=== PATIENT | female | born 1980 | race Caucasian/White ===

== ENCOUNTER → 2022-04-08 12:53 | Outpatient (CLI) | payer OTHER, SELFPAY ==
--- NOTE | ~2022-04-08 | XR_ITS ---
XR lumbar spine 2-3V DATE: 04/08/2022 13:22 INDICATION: Back strain TECHNIQUE: AP, lateral, coned lateral lumbosacral views COMPARISON: None FINDINGS: No fracture or dislocation or bone destruction. The lower thoracic and lumbar pedicles are intact. Lumbar no sacral interspaces are well preserved. There is minimal degenerative lipping of the lumbar vertebral bodies. The sacroiliac joints are intact. IMPRESSION: Minimal degenerative change Reviewed, dictated and finalized at location B. IMPRESSION: Minimal degenerative change
== END ==
PROVIDERS: PCP Nurse Practitioner Family; Visit Provider Nurse Practitioner Family
DX: S39.012D Strain of muscle, fascia and tendon of lower back, subsequent encounter (principal)
CPT/HCPCS: 72100

== ENCOUNTER 2024-05-03 10:00 | Outpatient (RCR) | payer OTHER, SELFPAY ==
--- NOTE | 2024-03-29 15:20 | OPREHPOC ---
Outpatient Therapy Plan of Care This is a Multidisciplinary Plan of Care that may contain components documented by all disciplines (PT, OT, and ST.) PT Problem 1 PT Problem #1 Knowledge Deficit PT Goal 1 Goal 1. Patient will perform independent HEP Target Visit 3 PT Problem 2 PT Problem #2 Pain PT Goal 1 Goal 1. No pain with pelvic exam to allow for full medical management, pap smears, etc. Target Visit 6 PT Problem 3 PT Problem #3 Impaired Strength PT Goal 1 Goal 1. Pelvic floor strength to 4/5 to decrease incontinence Target Visit 6 PT Goal 1 Goal 1. Pt will report no more than 1 instance of incontinence per week Target Visit 6
--- NOTE | 2024-03-29 15:21 | PTOPEVAL1 ---
Assessment and note entered by Tasneem Oleary DPT Evaluation Information Assessment Status Evaluation Subjective Information Pt reports urinary incontinence and also notices it with orgasm. Started about 7 years ago and is worsening. Stress incontinence every day, with coughing, sneezing, lifting, etc. Actual amount depends on level of activity and amount varies, can be enough to change clothes and sometimes wears pads. Voids 8-10 times a day, 0 at night. Will avoid fluid if she is being very active. Can hold urge 30 minutes. BM depends on diet, usually daily or every other day. Pain with BM when constipated. No pain with urination. History of pelvic pain and has been diagnosed with endometriosis. Currently has an IUD. The last time she had pelvic pain it was 4/10 highest, 0/10 lowest. Some pain with most recent pelvic exam. Pt has been 3 times and 2 deliveries- 1 vaginal with episiotomy and 1 . Patient goal: decrease incontinence Return to MD not scheduled currently. Reported Pain Level Pain Score 0: Self Report Assessment PT Clinical Summary The patient is presenting to skilled therapy with a chronic history of pelvic pain and urinary incontinence. She presents with decreased pelvic floor strength, increased pelvic floor muscle tone and pain with palpation which are contributing to her daily incontinence and pain. She will highly benefit from therapy to address her impairments in order to safely reduce incontinence and pain and improve function. Plan of Care Interventions Electrical Stimulation,Hot Pack/Cold Pack,Manual Therapy,Neuro Re-education,Patient/Caregiver Education,Therapeutic Activities,Therapeutic Exercise PT Services Indicated Yes Treatment Frequency and 1 time a week for 6 weeks Duration These treatments will address the objective and functional deficits as defined above. The patient will be advanced safely and appropriately in order for the patient to progress towards his/her prior level of function. Additional exercises will be introduced and as well as a comprehensive home exercise program upon discharge, if needed, ?to ensure carryover of functional gains achieved in the clinic. This treatment plan has been reviewed and agreement upon by the patient.
--- NOTE | 2024-05-03 10:37 | OPREHPOC ---
Outpatient Therapy Plan of Care This is a Multidisciplinary Plan of Care that may contain components documented by all disciplines (PT, OT, and ST.) PT Problem 1 PT Problem #1 Knowledge Deficit PT Goal 1 Goal 1. Patient will perform independent HEP Target Visit 3 Progress Met PT Problem 2 PT Problem #2 Pain PT Goal 1 Goal 1. No pain with pelvic exam to allow for full medical management, pap smears, etc. Target Visit 6 Progress Not Met PT Problem 3 PT Problem #3 Impaired Strength PT Goal 1 Goal 1. Pelvic floor strength to 4/5 to decrease incontinence Target Visit 6 Progress Met PT Goal 1 Goal 1. Pt will report no more than 1 instance of incontinence per week Target Visit 6 Progress Partially Met Comment 3 in last week
--- NOTE | 2024-05-03 10:37 | PTOPPROG ---
Assessment and note entered by Tasneem Oleary DPT Evaluation Information Assessment Status Progress Subjective Information Pt reports improvements with therapy and has more control of her bladder with coughing or sneezing. Incontinence 3 days in the last week. Highest pelvic pain in the last week 8/10 in the last week after sexual activity and lowest 0/10. Assessment PT Clinical Summary The patient has made some progress in therapy and reports 3 instances of incontinence in the last week (previously had been daily). She demonstrates improved pelvic floor strength and core strength. She continues to have pelvic pain and pain with palpation of pelvic floor. She will benefit from further therapy to address pain and incontinence in order to return to full function without pain or incontinence. Plan of Care Interventions Electrical Stimulation,Hot Pack/Cold Pack,Manual Therapy,Neuro Re-education,Patient/Caregiver Education,Therapeutic Activities,Therapeutic Exercise PT Services Indicated Yes Treatment Frequency and 1 visit every other week x 3 visits Duration These treatments will address the objective and functional deficits as defined above. The patient will be advanced safely and appropriately in order for the patient to progress towards his/her prior level of function. Additional exercises will be introduced and as well as a comprehensive home exercise program upon discharge, if needed, ?to ensure carryover of functional gains achieved in the clinic. This treatment plan has been reviewed and agreement upon by the patient.
--- NOTE | 2024-05-17 13:19 | PCPTNOTE ---
Patient did not show up to appointment on 05/17/24. Left voicemail for patient to reschedule.
--- NOTE | 2024-06-21 13:00 | PTOPDC ---
Assessment and note entered by Tasneem Oleary, DPT Evaluation Information Assessment Status Discharge - Pt Not Present Subjective Information - Assessment PT Clinical Summary The patient has not attended therapy since 05/03/24. She will be discharged this date and require a new script to resume at a later date. Plan of Care PT Services Indicated No
== END 2024-06-21 13:27 | disposition home or self-care (01) ==
LOC: ANHGOSHPT 10:00
PROVIDERS: PCP Nurse Practitioner Family; Visit Provider Nurse Practitioner
DX: N39.3 Stress incontinence (female) (male) (principal)
CPT/HCPCS: 97110; 97112; 97140; 97161; 97530

== ENCOUNTER 2024-06-22 14:41 | Outpatient (CLI) | payer OTHER, SELFPAY ==
--- NOTE | ~2024-06-22 | MM_ITS ---
EXAMINATION: MM screening bradford BI w iglesia HISTORY: Screening TECHNIQUE: Craniocaudal and mediolateral oblique 3-D tomosynthesis images were obtained and synthetic 2-D images were generated. CAD analysis was submitted and interpreted. COMPARISON: No prior mammogram is available for comparison at this institution. BREAST PARENCHYMAL COMPOSITION: Dense: The breasts are heterogeneously dense, which may obscure small masses FINDINGS: There are obscured masses in the upper outer quadrant of the left breast posteriorly. There are no suspicious masses, calcifications or architectural distortion in the right breast to suggest malignancy. IMPRESSION: 1. Obscured masses upper outer quadrant of the left breast posteriorly 2. Additional mammographic views and possible breast ultrasound are recommended. BI-RADS Category 0: Incomplete: Needs additional imaging evaluation. Reviewed, dictated and finalized at location B. IMPRESSION: 1. Obscured masses upper outer quadrant of the left breast posteriorly 2. Additional mammographic views and possible breast ultrasound are recommended . BI-RADS Category 0: Incomplete: Needs additional imaging evaluation.
== END 2024-06-22 14:42 ==
PROVIDERS: PCP Nurse Practitioner; Visit Provider Nurse Practitioner
DX: Z12.31 Encounter for screening mammogram for malignant neoplasm of breast (principal); N63.21 Unspecified lump in the left breast, upper outer quadrant
CPT/HCPCS: 77063; 77067

== ENCOUNTER 2024-07-23 13:43 | Outpatient (CLI) | payer OTHER, SELFPAY ==
--- NOTE | ~2024-07-23 | XR_ITS ---
EXAM: XR cervical spine 4-5V DATE: 07/23/2024 14:48 HISTORY: no injury acute left arm weakness for 3-4 weeks . COMPARISON: None available. FINDINGS: Craniocervical association and atlantoaxial joint are aligned. No prevertebral soft tissue swelling. Vertebral bodies are aligned. Vertebral body heights are maintained. Mild disc space narro wing, uncovertebral joint hypertrophy, and marginal osteophytosis at C5-C6 through C7-T1. Mild multil evel facet sclerosis. IMPRESSION: Mild lower lumbar degenerative disc disease. Mild multilevel cervical facet arthropathy. Reviewed, dictated and finalized at location K. IMPRESSION: Mild lower lumbar degenerative disc disease. Mild multilevel cervic al facet arthropathy.
--- NOTE | ~2024-07-23 | MR_ITS ---
EXAMINATION: MR brain/brain stem wo/w con DATE: 07/23/2024 14:45 INDICATION: Acute left-sided weakness. Headache. TECHNIQUE: Magnetic resonance imaging (MRI) of the brain and brainstem was performed without and with 15 mL MultiHance intravenous contrast. COMPARISON: None. FINDINGS: There is no intracranial hemorrhage, acute infarction, or abnormal intracranial mass lesion . The ventricles are normal in size. There are mucous retention cysts in the maxillary sinuses. The o rbits are normal. The mastoid air cells are normal. IMPRESSION: 1. Normal brain. Reviewed, dictated and finalized at location A. IMPRESSION: 1. Normal brain.
== END 2024-07-23 13:44 ==
PROVIDERS: PCP Nurse Practitioner; Visit Provider Nurse Practitioner Adult Health
DX: R53.1 Weakness (principal); R51.0 Headache with orthostatic component, not elsewhere classified; Z82.0 Family history of epilepsy and other diseases of the nervous system; M51.36 Other intervertebral disc degeneration, lumbar region
CPT/HCPCS: 70553; 72050

== ENCOUNTER 2024-07-26 07:57 | Outpatient (CLI) | payer OTHER, SELFPAY ==
--- NOTE | ~2024-07-26 | MMUS_ITS ---
EXAMINATION: MM diagnostic bradford LT w iglesia, US breast LT limited HISTORY: Follow-up left breast asymmetries TECHNIQUE: Additional 3-D tomosynthesis images of the left breast were performed and synthetic 2-D im ages were generated. CAD analysis was submitted and interpreted. High resolution Limited left breast ultrasound was performed. COMPARISON: 06/22/2024 BREAST PARENCHYMAL COMPOSITION: Not dense: There are scattered areas of fibroglandular density. FINDINGS: MAMMOGRAPHIC FINDINGS: There are multiple partially obscured nodular asymmetries centered in the upper outer quadrant of the left breast. No suspicious calcifications or architectural distortion. ULTRASOUND: Limited left breast ultrasound: At 1:00, 8 cm from the nipple, there is a complicated 4 mm cyst. At 1 :00, 8 cm from the nipple there is a 8 mm cyst. At 2:00, 8 cm from the nipple there is a small cluste r of cysts measuring up to 8 mm. At 2:00, 7 cm from the nipple there is a 2 mm cyst. At 3:00, 6 cm fr om the nipple there is a complicated 3 mm cyst. At 3:00, 5 cm from the nipple there is a 4 mm cyst. N o suspicious masses to suggest malignancy. IMPRESSION: 1. No evidence for malignancy in the left breast. Benign findings. 2. Routine yearly screening mammogram and regular clinical breast examination are recommended. BI-RADS Category 2: Benign finding(s). Reviewed, dictated and finalized at location B. IMPRESSION: 1. No evidence for malignancy in the left breast. Benign findings. 2. Routine yearly screening mammogram and regular clinical breast examination a re recommended. BI-RADS Category 2: Benign finding(s).
== END 2024-07-26 07:58 ==
PROVIDERS: PCP Obstetrics & Gynecology; Visit Provider Nurse Practitioner
DX: R92.2 Inconclusive mammogram (principal); N63.0 Unspecified lump in unspecified breast
CPT/HCPCS: 76642; 77061; 77065; G0279

== ENCOUNTER 2025-06-23 13:52 | Outpatient (CLI) | payer OTHER, SELFPAY ==
--- NOTE | ~2025-06-23 | MM_ITS ---
EXAMINATION: screening [facility] BI w iglesia INDICATION: Asymptomatic, referred for screening mammogram COMPARISON: 06/22/2024 TECHNIQUE: Digital Breast Tomosynthesis CC, MLO views of Both breasts were obtained with computer-ai ded detection to assist in interpretation of the study. FINDINGS: The breasts are heterogeneously dense, which may obscure small masses. There is an asymmetry seen on the MLO view in the Inferior right breast centered at posterior depth. Elsewhere, there are no mammographic features of malignancy. IMPRESSION: 1. Right breast Asymmetry. 2. No evidence of malignancy in the Left breast. RECOMMENDATION: Right breast Diagnostic mammogram with true lateral, appropriate spot compression views and an ultras ound if needed. BI-RADS Category 0: Incomplete: Needs additional imaging evaluation. Reviewed, dictated and finalized at location B. IMPRESSION: 1. Right breast Asymmetry. 2. No evidence of malignancy in the Left breast. RECOMMENDATION: Right breast Diagnostic mammogram with true lateral, appropriate spot compressi on views and an ultrasound if needed. BI-RADS Category 0: Incomplete: Needs additional imaging evaluation.
--- OUTSIDE RECORDS SUMMARY | 2025-06-23 14:09 | XMS_ITS | Referral Summary ---
Author Organization [facility] Address [address] [place] [address] Care Team Providers Care Descriptive Catalog Librarian Name Role Phone MendelJoyce mcgovern Cece TIE FASTENER Unavailable [phone] Laurel Parks MD Primary Care Provider [phone] Encounters Date Type Department Care Team Description 05/16/2025 Results Follow-Up [facility] Medical [facility] [address] [place] [address] Rosetta Crawford NP XR Chest Pa Lateral 2 Views 05/15/2025 9:53 AM CDT - 05/15/2025 11:59 PM CDT Hospital Encounter [facility] [address] [place] [id number] Subacute cough Discharge Disposition: Discharge to home or self care 05/15/2025 9:00 AM CDT Office Visit [facility] [place] [address] [place] [address] Dalia Magaña NP Subacute cough (Primary Dx); Sore throat 04/29/2025 10:30 AM CDT Office Visit [facility] [place] [address] [place] [address] Dalia Magaña NP Lower respiratory infection (Primary Dx); Sore throat 04/04/2025 Telephone [facility] [address] [address] Nimco Ramos NP Prior Auth (ZEPBOUND) from Last 3 Months Allergies Active Allergy Reactions Criticality Noted Date Comments Latex Itching,Rash Medium 09/29/2019 Naproxen Hives,Other (See comments),Shortness of breath,Unknown High 04/14/2024 Reaction: Anaphylaxis, , Reaction: hives, difficulty breathing, Nsaids (Non-Steroidal Anti-Inflammatory Drug) Anaphylaxis,Hives,Itc corbin,Unknown,Swelling High 09/29/2019 Medications levonorgestreL (Mirena) IUD Take 1 device by intrauterine route. 6 Active sertraline 200 mg capsuleIndicati ons:Generalized anxiety disorder,MDD (major depressive disorder), recurrent episode, moderate (HCC) Take 1 capsule by mouth daily 90 capsule 1 4 08/23/20 25 Active Additional Information Patient taking differently: No details specified, Reason: pt states 100 mg, Reported on 05/15/2025 buPROPion XL (WELLBUTRIN XL) 150 mg 24 hr tabletIndicatio ns:Generalized anxiety disorder,MDD (major depressive disorder), recurrent episode, moderate (HCC) Take 1 tablet (150 mg total) by mouth every morning 90 tablet 3 4 08/23/20 25 Active azithromycin (ZITHROMAX) 250 mg tabletIndicatio ns:Lower respiratory infection Take two tabs first day, then one tab daily x 4 days 6 tablet 5 Active Additional Information Patient not taking.Reported on 05/15/2025 albuterol HFA (PROVENTIL HFA,VENTOLIN HFA,PROAIR HFA) 90 mcg/actuation inhalerIndicati ons:Lower respiratory infection Inhale 2 puffs every 4 (four) hours as needed for wheezing 1 each 5 Active fluticasone propionate (FLONASE) 50 mcg/actuation nasal sprayIndication s:Lower respiratory infection Administer 2 sprays into each nostril daily 1 each 5 Active Zepbound 15 mg/0.5 mL pen injector ADMINISTER 15 MG UNDER THE SKIN EVERY 7 DAYS 5 Active benzonatate (TESSALON) 200 mg capsuleIndicati ons:Subacute cough Take 1 capsule (200 mg total) by mouth 3 (three) times a day as needed for cough 42 capsule 5 Active Active Problems Problem Noted Date Diagnosed Date Familial migraine 08/23/2024 Assessment & Plan (08/23/2024 12:28 PM CDT): Referral to genetics Daughter's neurologist wants genetic testing 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 Alejandra New referral placed Numbness and tingling in left arm 08/23/2024 Assessment & Plan (08/23/2024 12:30 PM CDT): Had stroke workup-negative Unsure if related to anxiety EMG ordered MDD (major depressive disord er), recurrent episode, moderate 04/12/2024 Assessment & Plan (08/23/2024 12:29 PM CDT): Chronic, stable Split from ex 08/2023, in 01/2024 Still struggling Continue Sertraline 200 mg daily and Wellbutrin 150 mg daily Generalized anxiety disorder 04/12/2024 Assessment & Plan (08/23/2024 12:29 PM CDT): Chronic, stable Split from ex 08/2023, in 01/2024 Still struggling Continue Sertraline 200 mg daily and Wellbutrin 150 mg daily Dyslipidemia 06/09/2015 Tobacco dependence syndrome 04/16/2014 Resolved Problems Problem Noted Date Diagnosed Date Resolved Date Rectal pain 04/14/2024 08/23/2024 Grief 04/12/2024 08/23/2024 Adjustment disorder 04/12/2024 08/23/20 24 Immunizations Immunization Administration Dates Next Due DTP 07/02/1985, 5,09/20/1981,1980,02/20/1981 Influenza, Unspecified 08/23/2024(Deferr ed: Patient Refused),08/31/2023(Deferred: Patient Refused) MMR 07/21/1991,04/11/1982 OPV 07/02/1985, 5,09/20/1981,1980,02/20/1981 Pfizer SARS-CoV-2 Monovalent Vaccination (12+ Yrs) PURPLE 03/05/2021,02/11/2021 Td, adsorbed 01/23/1995 Tdap 10/16/2009 Social History Tobacco Use Types Packs/Day Years Used Date Smoking Tobacco: Former Cigarettes 2 018 - 1995 Vaping Started: 2018 Passive Smoke Exposure: Current Smokeless Tobacco: Never Tobacco Cessation:Counseling Given: Not Answered Comments:Smoking History Packs/day: 1 Packs Alcohol Use Standard Drinks/Week Comments Yes 0 (1 standard drink = 0.6 oz pur e alcohol) AUDIT-C Answer Date Recorded Q1: How often do you have a drink containing alc ohol? 2-4 times a month 08/23/2024 Q2: How many drinks containi ng alcohol do you have on a typical day when you are drinking? 1 or 2 08/23/2024 Q3: How often do you have si x or more drinks on one occasion? Never 08/23/2024 PHQ-2 Answer Date Recorded PHQ-2 Total Score (If total score is 3 or more points, staff should administer the PHQ-9) 2 08/23/2024 Personal Safety Answer Date Recorded Have you ever been in or are you currently in a harmful physical or emotional relationship or is someone making you feel afraid or unsafe? Denies 07/06/2024 Comments No Sex and Gender Information Value Date Recorded Sex Assigned at Not on file Legal Sex Female 2:54 PM INPATIENT CODER Gender Identity Female 05/03/2024 9:12 AM CDT Sexual Orientation Not on file Last Filed Vital Signs Vital Sign Reading Time Taken Comments Blood Pressure 134/74 05/15/2025 8:57 AM CDT Pulse 111 05/15/2025 8:57 AM CDT Temperature 36.6 C (97.8 F) 05/15/2025 8:57 AM CDT Respiratory Rate 16 05/15/2025 8:57 AM CDT Oxygen Saturation 98% 05/15/2025 8:57 AM CDT Inhaled Oxygen Concentration - - Weight 72.6 kg (160 lb) 05/15/2025 8:57 AM CDT Height 162.6 cm (5' 4) 05/15/2025 8:57 AM CDT Body Mass Index 27.46 05/15/2025 8:57 AM CDT Plan of Treatment Not on file Procedures Procedure Name Priority Date/Time Associated Diagnosis Comments XR CHEST PA LATERAL 2 VIEWS Schedule BILL, Read BILL (Appt Today, Awaiting Results) 05/15/2025 10:01 AM CDT Subacute cough POCT RAPID STREP Routine 05/15/2025 9:12 AM CDT Sore throat POCT INFLUENZA A/B Routine 04/29/2025 10:31 AM CDT Sore throat COVID-19 POC Routine 04/29/2025 10:31 AM CDT Sore throat POCT RAPID STREP Routine 04/29/2025 10:3 1 AM CDT Sore throat from Last 3 Months Results * XR Chest Pa Lateral 2 Views (05/15/2025 10:01 AM CDT) Anatomical Region Laterality Modality Body, Chest N/A Computed Radiogr aphy 05/15/2025 11:3 4 PM CDT Narrative 05/15/2025 11:44 PM CDT EXAM DESCRIPTION: XR CHEST PA LATERAL 2 VIEWS REASON FOR STUDY: cough x3 weeks, worsening. Vapes. Concern for pneumonia. Current vape user with cough for three weeks. No fever. TECHNIQUE: 2 radiographic view(s) of the chest. COMPARISON: None FINDINGS: LUNGS: No focal opacity, pleural effusion, or pneumothorax. HEART/MEDIASTINUM: Cardiac silhouette normal in size. Mediastinal and hilar contours appear normal. LINES/TUBES: None. BONES: No acute osseous abnormality. IMPRESSION: No acute cardiopulmonary abnormality. THIS IS AN ELECTRONICALLY VERIFIED FINAL REPORT 05/15/2025 11:44 PM - Electronically signed by Edilberto Hein M.D. KT: DANIELLE Report ID: [id number] Reading Location: [id number] Procedure Note Edilberto Hein MD - 05/15/2025 EXAM DESCRIPTION: XR CHEST PA LATERAL 2 VIEWS REASON FOR STUDY: cough x3 weeks, worsening. Vapes. Concern forpneumonia. Current vape user with cough for three weeks. No fever. TECHNIQUE: 2 radiographic view(s) of the chest. COMPARISON: None FINDINGS: LUNGS: No focal opacity, pleural effusion, or pneumothorax. HEART/MEDIASTINUM: Cardiac silhouette normal in size. Mediastinal andhilar contours appear normal. LINES/TUBES: None. BONES: No acute osseous abnormality. IMPRESSION: No acute cardiopulmonary abnormality. THIS IS AN ELECTRONICALLY VERIFIED FINAL REPORT 05/15/2025 11:44 PM - Electronically signed by Edilberto Hein M.D. KT: DANIELLE Report ID: [id number] Reading Location: [place] [address] Dalia Magaña TIE FASTENER IMG XR PROCEDURES Final Result * POCT rapid strep A (05/15/2025 9:12 AM CDT) [facility] Rapid Strep A, POC Negative Negative Swab 05/15/2025 9:12 AM CDT Dalia Magaña POINT OF CARE TEST ORDERABLES Fi nal Result * COVID-19 POC (04/29/2025 10:31 AM CDT) [facility] COVID-19 Ag POC (BD Veritor) Presumptive Negative Presumptive Negative, Invalid [facility] Nasal 04/29/2025 10:3 1 AM CDT Dalia Magaña TIE FASTENER POINT OF CARE TEST ORDERABLES Fi nal Result [facility] [address] [place] [address], [facility] * POCT influenza A/B (04/29/2025 10:31 AM CDT) Rapid Influenza A Ag Negative Negative, Invalid Rapid Influenza B Ag Negative Negative, Invalid Nasal 04/29/2025 10:3 1 AM CDT Dalia Magaña TIE FASTENER POINT OF CARE TEST ORDERABLES Fi nal Result * POCT rapid strep A (04/29/2025 10:31 AM CDT) Rapid Strep A, POC Negative Negative Swab 04/29/2025 10:3 1 AM CDT Dalia Magaña TIE FASTENER POINT OF CARE TEST ORDERABLES Fi nal Result from Last 3 Months Insurance [employer] Care Teams Descriptive Catalog Librarian Relationship Specialty Start Date End Date Laurel Parks MD [address] [place] [phone] PCP - General Internal Medicine 05/15/25 Joyce Avilez NP [address] [place] [address] Nurse Practitioner Obstetrics and Gynecology 03/17/24
--- OUTSIDE RECORDS SUMMARY | 2025-06-23 14:09 | XMS_ITS | Clinical Summary ---
Author Organization [facility] [employer] Address [address] [place] [address] Care Team Providers Care Dancing Master Name Role Phone Laurel Parks MD Primary Care Provider [phone] Allergies Active Allergy Reactions Criticality Noted Date Comments Latex Itching,Rash Low 09/29/2019 Naproxen Hives,Other (See Comments),Shortness of Breath/Wheezing High 04/14/2024 Reaction: Anaphylaxis, , Reaction: hives, difficulty breathing, Nsaids (Non-Steroidal Anti-Inflammatory Drug) Anaphylaxis,Hives,Itc corbin,Swelling High 09/29/2019 Medications levonorgestreL (MIRENA) 20 mcg/24 hours (7 yrs) 52 mg IUD 07/01/20 16 Active albuterol sulfate HFA 90 mcg/actuation aerosol inhalerIndicati ons:Cough, unspecified type Take 2 Puffs by inhalation every 6 hours as needed for Shortness of Breath or Wheezing. 8.5 Gram 06/15/20 24 Active multivitamin/ir on/folic acid (CENTRUM WOMEN ORAL) Take by mouth. Activ e L.acid/L.casei/ B.bif/B.dennys/FOS (PROBIOTIC BLEND ORAL) Take by mouth. Act nancy sertraline (ZOLOFT) 100 mg tabletIndicatio ns:Mixed anxiety and depressive disorder Take 1 Tablet (100 mg) by mouth daily. 90 Tablet 05/10/20 25 Active buPROPion HCL (Wellbutrin XL) 300 mg Extended Release 24 hour tabletIndicatio ns:Mixed anxiety and depressive disorder Take 1 Tablet (300 mg) by mouth daily in the morning. 90 Tablet 06/02/20 25 Active tirzepatide, weight loss, (Zepbound) 15 mg/0.5 mL Pen InjectorIndicat ions:Obesity (BMI 30.0-34.9) Inject 0.5 mL (15 mg) by subcutaneous injection every 7 days. 6 mL 06/02/20 25 Active tirzepatide, weight loss, (Zepbound) 15 mg/0.5 mL Pen InjectorIndicat ions:Obesity (BMI 30.0-34.9) Inject 0.5 mL (15 mg) by subcutaneous injection every 7 days. 2 mL 05/10/20 25 025 Discontin ued(Reord er) buPROPion HCL (Wellbutrin XL) 300 mg Extended Release 24 hour tabletIndicatio ns:Mixed anxiety and depressive disorder Take 1 Tablet (300 mg) by mouth daily in the morning. 30 Tablet 05/10/20 25 025 Discontin ued(Reord er) Active Problems Problem Noted Date Diagnosed Date Obesity (BMI 30.0-34.9) 11/16/2024 Cervical spine arthritis 09/21/2024 MDD (major depressive disord er), recurrent episode, moderate 04/12/2024 Adjustment disorder 04/12/2024 Generalized anxiety disorder 04/12/2024 Grief 04/12/2024 Tobacco use 09/29/2019 Encounters Date Type Department Care Team Description 06/15/2025 External Device Data STL ABSTRACTION Provider, Abstract 06/15/2025 External Device Data STL ABSTRACTION Provider, Abstract 06/08/2025 Chart Note [facility] at [facility] [employer] [place] [address] [place] [phone] Benton Anthony 06/07/2025 2:30 PM CDT Video Visit [facility] at [facility] [address] [place] [phone] Benton Anthony Generalized anxiety disorder (Primary Dx); Major depressive disorder, recurrent, moderate (CMS/HCC) 06/02/2025 2:00 PM CDT Office Visit [facility] at [place] [address] [place] [address] Laurel Parks MD Obesity (BMI 30.0-34.9) (Primary Dx); Mixed anxiety and depressive disorder 05/18/2025 External Device Data STL ABSTRACTION Provider, Abstract 05/12/2025 Telephone [facility] at [address] [place] [address] Benton Anthony CoCHortencia Initial Contact (2nd contact. Scheduled initial assessment for 06/07/25 @ 2:30 PM by video.) 05/11/2025 Telephone [facility] at [address] [facility] [place] [address] Benton Anthony CoCHortencia Initial Contact (1st contact to schedule initial assessment. Left message.) 05/10/2025 2:30 PM CDT Office Visit [facility] at [place] [address] [place] [address] Laurel Parks MD Obesity (BMI 30.0-34.9) (Primary Dx); Mixed anxiety and depressive disorder 05/03/2025 External Device Data STL ABSTRACTION Provider, Abstract 04/26/2025 External Device Data STL ABSTRACTION Provider, Abstract 04/21/2025 External Device Data STL ABSTRACTION Provider, Abstract 04/20/2025 External Device Data STL ABSTRACTION Provider, Abstract 04/14/2025 2:30 PM CDT Office Visit [facility] at [address] [place] [address] Laurel Parks MD Obesity (BMI 30.0-34.9) (Primary Dx); Mixed anxiety and depressive disorder; Need for pwhlprlwyj-uahcsuo-sh rtussis (Tdap) vaccine 04/14/2025 Results Follow-Up [facility] at [facility] [address] [place] [address] Mari Benedict, ESTELA TSH, LIPID PANEL, COMPREHENSIVE METABOLIC PANEL, CBC WITH DIFFERENTIAL 04/11/2025 8:20 AM CDT Office Visit [facility] at [facility] [employer] [address] [place] [address] Screening for condition (Primary Dx) from Last 3 Months Immunizations Immunization Administration Dates Next Due (ADACEL/BOOSTRIX)(10 YR UP) TDAP VACCINE, 0.5ML, IM 04/14/2025,10/16/2009 (M-M-R II/PRIORIX)(12 MO UP) MEASLES, MUMPS AND RUBELLA VIRUS VACCINE, 0.5 ML IM/SUBCUT 07/21/1991,04/11/1982 Diptheria, Tetanus Toxoids, And Whole Cell Pertussis Vaccine (DTP), for intramuscular use 07/02/1985,01/12/1985,09/20/1981,04/06,02/20/1981 Poliovirus Vaccine Live Oral 07/02/1985, 01/12/1985,09/20/1981,04/06,02/20/1981 Td Adsorbed Vaccine PF IM 01/23/1995 Family History Medical History Relation Name Comments No Known Problems Brother 1 Depression Brother 2 Armando Ulcerative Colitis Daughter 1 Other Daughter 2 chronic constip ation Anemia Daughter 3 George Multiple Sclerosis Daughter 3 George Other Daughter 3 George Ulcerative Coli tis Hypertension Father Michael Heart Disease Maternal Grandfather Bill Unknown Maternal Grandmother Heart Disease Mother Martita Hypertension Mother Martita Stroke Mother Martita Unknown Paternal Grandfather Unknown Paternal Grandmother Relation Name Status Comments Brother 1 Brother 2 Armando Daughter 1 Alive Daughter 2 Alive Daughter 3 George Alive Father Michael Alive Maternal Grandfather Bill Maternal Grandmother Mother Martita Paternal Grandfather Paternal Grandmother Social History Tobacco Use Types Packs/Day Years Used Date Smoking Tobacco: Former Cigarettes 1 20 1 - 09/24/2020 Smokeless Tobacco: Never Tobacco Cessation:Counseling Given: Not Answered Alcohol Use Standard Drinks/Week Comments Yes 0 (1 standard drink = 0.6 oz pur e alcohol) Drink occassionally Comments No Sex and Gender Information Value Date Recorded Sex Assigned at Female 03/17/2024 8:41 AM CDT Legal Sex Female 8:47 PM CDT Gender Identity Female 03/17/2024 8:41 AM CDT Sexual Orientation Choose not to disclose 2023 8:41 AM CDT Last Filed Vital Signs Vital Sign Reading Time Taken Comments Blood Pressure 112/80 06/02/2025 1:57 PM CDT Pulse 92 06/02/2025 1:57 PM CDT Temperature 36.7 C (98.1 F) 06/02/2025 1:57 PM CDT Respiratory Rate 18 06/02/2025 1:57 PM CDT Oxygen Saturation 98% 06/02/2025 1:57 PM CDT Inhaled Oxygen Concentration - - Weight 73.5 kg (162 lb) 06/02/2025 1:57 PM CDT Height 162.6 cm (5' 4) 06/02/2025 1:57 PM CDT Body Mass Index 27.81 06/02/2025 1:57 PM CDT Plan of Treatment Upcoming Encounters Date Type Department Care Team (Late st Contact Info) Description 06/24/2025 9:00 AM CDT Video Visit [facility] at [facility] [employer] [facility] [address] [place] [phone] Benton Anthony [address] [place] [phone] 09/07/2025 2:30 PM CDT Office Visit [facility] at [facility] [employer] [facility] [address] [place] [phone] aLurel Parks MD [address] [place] [place] [address] Health Maintenance Due Date Last Done Comments Pre-Diabetes and Diabetes Screening 1980 HPV VACCINES (1 - 3-dose series) 1995 HEPATITIS B VACCINES (1 of 3 - 19+ 3-dose series) 1999 HPV/Cotest (21-29) 2001 HPV/Cotest (30-65) 2010 COVID-19 Vaccine (3 - 2023-2 5 season) 2024 03/05/2021, 02/11/2021 INFLUENZA VACCINE (#1) 2025 10/19/2024, 2018 BREAST CANCER SCREENING 07/26/2025 07/26/2024 CERVICAL CANCER SCREENING 11/29/2027 PAP SMEAR 11/29/2027 11/29/2024, 11/01, 11/19/2022, Additional history exists DTAP/TDAP/TD VACCINES (7 - T d or Tdap) 04/14/2035 04/14/2025, 10/16/2009, 01/23/1995, Additional history exists Procedures Procedure Name Priority Date/Time Associated Diagnosis Comments CBC WITH DIFFERENTIAL Routine 04/11/2025 8:08 AM CDT Screening for condition COMPREHENSIVE METABOLIC PANEL Routine 04/11/2025 8:08 AM CDT Screening for condition LIPID PANEL Routine 04/11/2025 8:08 AM CDT Screening for condition TSH Routine 04/11/2025 8:08 AM CDT Screening for condition MAMMO 3D AMINTA SCREEN BILAT W OR WO CAD Routine 07/26/2024 11:50 AM CDT from Last 3 Months or Most Recently Relevant to Health Maintenance Results * CBC WITH DIFFERENTIAL (04/11/2025 8:08 AM CDT) WBC 5.8 3.8 - 10.8 Thousand/u L [facility] RBC 4.38 3.80 - 5.10 Million/uL [facility] HEMOGLOBIN 14.0 11.7 - 15.5 g/dL [facility] HEMATOCRIT 41.8 35.0 - 45.0 % [facility] MCV 95.4 80.0 - 100.0 fL [facility] MCH 32.0 27.0 - 33.0 pg [facility] MCHC 33.5 32.0 - 36.0 g/dL [facility] Comment: For adults, a slight decrease in the calculated MCHC value (in the range of 30 to 32 g/dL) is most likely not clinically significant; however, it should be interpreted with caution in correlation with other red cell parameters and the patient's clinical condition. RDW 12.3 11.0 - 15.0 % [facility] PLATELETS 300 140 - 400 Thousand/u L [facility] MPV 9.4 7.5 - 12.5 fL [facility] NEUTROPHIL ABSOLUTE 3,660 1,500 - 7,800 cells/uL [facility] LYMPHOCYTE ABSOLUTE 1,572 850 - 3,900 cells/uL [facility] MONOCYTE ABSOLUTE 447 200 - 950 cells/uL [facility] EOSINOPHIL ABSOLUTE 93 15 - 500 cells/uL [facility] BASOPHILS ABSOLUTE 29 0 - 200 cells/uL [facility] NEUTROPHIL 63.1 % [facility] LYMPHOCYTES 27.1 % [facility] MONOCYTE 7.7 % [facility] EOSINOPHILS 1.6 % [facility] BASOPHILS 0.5 % [facility] Comment: Test Performed at: [facility] [place] [address] [place] [address] [facility] Blood 04/11/2025 8:08 AM CDT 04/12/2025 3:50 AM CDT Mari Benedict NP HEMATOLOGY ORDERABLES Fin al Result [facility] [phone] [facility] [address] [address] [place] [phone] * TSH (04/11/2025 8:08 AM CDT) TSH 1.21 mIU/L [facility] Comment: Reference Range > or = 20 Years 0.40-4.50 Ranges First trimester 0.26-2.66 Second trimester 0.55-2.73 Third trimester 0.43-2.91 Test Performed at: [place] [address] [place] [address] [facility] Blood 04/11/2025 8:08 AM CDT 04/12/2025 3:50 AM CDT Mari Clark Jak ANIMAL ANATOMIST CHEMISTRY ORDERABLES Quiana l Result [facility] [phone] [place] [address] [place] [address] * LIPID PANEL (04/11/2025 8:08 AM CDT) CHOLESTEROL 151 <200 mg/dL [facility] [employer] [facility] [place] HDL 55 > OR = 50 mg/dL [facility] TRIGLYCERIDE 79 <150 mg/dL [facility] LDL CALCULATED 80 mg/dL (calc) [facility] [place] Comment: Reference range: <100 Desirable range <100 mg/dL for primary prevention; <70 mg/dL for patients with CHD or diabetic patients with > or = 2 CHD risk factors. LDL-C is now calculated using the Rebeca calculation, which is a validated novel method providing better accuracy than the Friedewald equation in the estimation of LDL-C. Dewey CHERY et al. JYOTSNA. 2013;310(19): 5816-7114 (http://education.LoginRadius/faq/SYZ614) CHOL/HDL RATIO 2.7 <5.0 (calc) [facility] NON-HDL CHOLESTEROL 96 <130 mg/dL (calc) [facility] Comment: For patients with diabetes plus 1 major ASCVD risk factor, treating to a non-HDL-C goal of <100 mg/dL (LDL-C of <70 mg/dL) is considered a therapeutic option. Test Performed at: [place] [address] [address] [phone] [facility] Blood 04/11/2025 8:08 AM CDT 04/12/2025 3:50 AM CDT Mari Clark Jak ANIMAL ANATOMIST CHEMISTRY ORDERABLES Quiana l Result [facility] [phone] [place] [address] [address] [place] [phone] * COMPREHENSIVE METABOLIC PANEL (04/11/2025 8:08 AM CDT) GLUCOSE 84 65 - 99 mg/dL [facility] Comment: Fasting reference interval BUN 11 7 - 25 mg/dL [facility] CREATININE 0.65 0.50 - 0.99 mg/dL [facility] GFR 111 > OR = 60 mL/min/1. 73m2 [facility] BUN/CREAT RATIO SEE NOTE: 6 - 22 (calc) [facility] Comment: Not Reported: BUN and Creatinine are within reference range. SODIUM 137 135 - 146 mmol/L [facility] Ronak katiana [place] POTASSIUM 4.2 3.5 - 5.3 mmol/L [facility] [place] CHLORIDE 102 98 - 110 mmol/L [facility] [place] CO2 25 20 - 32 mmol/L [facility] [place] CALCIUM 9.0 8.6 - 10.2 mg/dL [facility] TOTAL PROTEIN 6.3 6.1 - 8.1 g/dL [facility] ALBUMIN 4.4 3.6 - 5.1 g/dL [facility] GLOBULIN 1.9 1.9 - 3.7 g/dL (calc) Juan [employer] [employer] [facility] [place] ALBUMIN/GLOBULIN RATIO 2.3 1.0 - 2.5 (calc) [facility] [place] BILIRUBIN TOTAL 0.8 0.2 - 1.2 mg/dL [facility] [employer] [facility] ALKALINE PHOSPHATASE 38 31 - 125 U/L [facility] AST 13 10 - 30 U/L [facility] ALT 11 6 - 29 U/L [facility] kat[facility] Comment: Test Performed at: [facility] [place] [address] [address] [phone] Raul Cardoza Vo Blood 04/11/2025 8:08 AM CDT 04/12/2025 3:50 AM CDT us Mari Benedict ANIMAL ANATOMIST CHEMISTRY ORDERABLES Quiana moreno Result [facility] [phone] [facility] [place] [address] [address] [phone] * MAMMO 3D AMINTA SCREEN BILAT W OR WO CAD (07/26/2024 11:50 AM CDT) Anatomical Region Laterality Modality Breast Bilateral Mammography Joyce Avilez ANIMAL ANATOMIST MAMMO ORDERABLES Final Result from Last 3 Months or Most Recently Relevant to Health Maintenance Insurance * Guarantor: [employer] D (C) Account Type Relation to Patient Date of Phone Billing Address Corporate Employer ATTN: [employer] [address] [place] [phone] [place] * Guarantor: [employer] Account Type Relation to Patient Date of Phone Billing Address Corporate Employer ATTN: [employer] [address] [address] Care Teams Dancing Master Relationship Specialty Start Date End Date Laurel Parks MD [address] [place] [address] [employer] [place] [address] PCP - General Internal Medicine 09/21/24"
--- OUTSIDE RECORDS SUMMARY | 2025-06-23 14:09 | XMS_ITS | Clinical Summary ---
Author Organization [facility] Address [address] [place] [address] Care Team Providers Care Pelletising Extruder Operator Name Role Phone Joyce Avilez REGISTERED PUBLIC SURVEYOR Unavailable [phone] Laurel Parks MD Primary Care Provider [phone] Allergies Active Allergy Reactions Criticality Noted Date [...] 04/12/2024 08/23/2024 Adjustment disorder 04/12/2024 08/23/20 24 Encounters Date Type Department Care Team Description 05/16/2025 Results Follow-Up [facility] at [address] [place] [address] Rosetta Crawford NP XR Chest Pa Lateral 2 Views 05/15/2025 9:53 AM CDT - 05/15/2025 11:59 PM CDT Hospital Encounter [facility] [address] [place] [address] Subacute cough Discharge Disposition: Discharge to home or self care 05/15/2025 9:00 AM CDT Office Visit [facility] at [address] [place] [address] Dalia Magaña NP Subacute cough (Primary Dx); Sore throat 04/29/2025 10:30 AM CDT Office Visit [facility] [address] [place] [address] Dalia Magaña NP Lower respiratory infection (Primary Dx); Sore throat 04/04/2025 Telephone [facility] [address] [address] Nimco Ramos NP Prior Auth (ZEPBOUND) from Last 3 Months Immunizations Immunization Administration Dates Next Due DTP 07/02/1985, 5,09/20/1981,1980,02/20/1981 Influenza, Unspecified 08/23/2024(Deferr ed: Patient Refused),08/31/2023(Deferred: Patient Refused) MMR 07/21/1991,04/11/1982 OPV 07/02/1985, 5,09/20/1981,1980,02/20/1981 Pfizer SARS-CoV-2 Monovalent Vaccination (12+ Yrs) PURPLE 03/05/2021,02/11/2021 Td, adsorbed 01/23/1995 Tdap 10/16/2009 Surgical History Surgery Date Site/Laterality Comments OTHER SURGICAL HISTORY endometriosis: laparoscopic surgery OTHER SURGICAL HISTORY 2005 Rotator cuff repair: rt shoulder surgery TONSILLECTOMY 1994 Tonsillectomy SECTION 2002 section OTHER SURGICAL HISTORY 1998 cryo/freezing uterus OTHER SURGICAL HISTORY Mitral Valve prolapse: Patient states never had echo OTHER SURGICAL HISTORY 03-derm: Dr Alejandra Medical History Medical History Date Comments 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 Hx Other Medical 2 tubes from ki dney to bladder Endometritis 2005 endometriosis Hx Other Medical Rotator cuff re pair Hx Other Medical Mitral Valve pr olapse Hx Other Medical Menstrual Heada ches Hx Other Medical A0 (1 csect ion) Hx Other Medical 03-derm Hx Other Medical Subacute cutane ous lupus Hx Other Medical Mirena IUD plac ed 07/2016, Dr Arteaga Family History Medical History Relation Name Comments Depression Brother Depression; Hypertension Father Hypertension; Heart attack Maternal Grandfather Myocard ial infarction; Heart attack Maternal Grandmother Myocard ial infarction; Breast cancer Mother Cancer -breast ; Depression Mother Depression; Heart disease Mother Heart disease; Hypertension Mother Hypertension; Stroke Mother Stroke; Other Other 2 hole in heart ; Relation Name Status Comments Brother Father Maternal Grandfather Maternal Grandmother Mother Other 1 Alive Other 2 Social History Tobacco Use Types Packs/Day Years Used Date Smoking Tobacco: Former Cigarettes 2 - 1995 Vaping Started: 2017 Passive Smoke Exposure: Current Smokeless Tobacco: Never [...] on file 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 Gender Identity Female 05/03/2024 9:12 AM CDT Sexual Orientation Not on file Obstetrics History Last Filed Vital Signs Vital Sign Reading [...] 05/15/2025 8:57 AM CDT Plan of Treatment Health Maintenance Due Date Last Done Comments Regular Well Visit/Exam 18-64 1998 HPV Vaccines (1 - 3-dose SCDM series) 2007 Cervical Cancer Screening 11/25/2024 11/25/2023 Breast Cancer Screening-Mammogram 07/26/2025 07/26/2024 Influenza Vaccine (#1) 2025 Depression Screening 08/23/2025 08/23/2024 DTaP/Tdap/Td Vaccine (7 - Td or Tdap) 04/14/2035 04/14/2025, 10/16/2009, 01/23/1995, Additional history exists Covid-19 Vaccine Discontinued 03/05/2021, 02/11/2021 Hepatitis B Screening Completed 11/25/2023 Hepatitis C Screening Completed 11/25/2023 Pneumococcal vaccine <65 Aged Out No longer eligible based on patient's age to complete this topic Varicella Vaccines Discontinued Procedures Procedure Name Priority Date/Time Associated Diagnosis [...] Edilberto Hein M.D. KT: DANIELLE Report ID: [id number] Reading Location: [id number] Procedure Note Edilberto Hein MD - 05/15/2025 [...] Edilberto Hein M.D. KT: DANIELLE Report ID: [id number] Reading Location: [place] [address] Dalia Magaña REGISTERED PUBLIC SURVEYOR IMG XR PROCEDURES Final Result * POCT rapid strep A (05/15/2025 9:12 AM CDT) [facility] Rapid Strep A, POC Negative Negative Swab 05/15/2025 9:12 AM CDT Dalia Magaña REGISTERED PUBLIC SURVEYOR POINT OF CARE TEST ORDERABLES Fi nal Result * COVID-19 POC (04/29/2025 10:31 AM CDT) [facility] COVID-19 Ag POC (BD Veritor) Presumptive Negative Presumptive Negative, Invalid [facility] Nasal 04/29/2025 10:3 1 AM CDT Dalia Magaña REGISTERED PUBLIC SURVEYOR POINT OF CARE TEST ORDERABLES Fi nal Result [facility] [address] [place] [address], [facility] * POCT influenza A/B (04/29/2025 10:31 AM CDT) [facility] Rapid Influenza A Ag Negative Negative, Invalid Rapid Influenza B Ag Negative Negative, Invalid Nasal 04/29/2025 10:3 1 AM CDT Dalia Magaña REGISTERED PUBLIC SURVEYOR POINT OF CARE TEST ORDERABLES Fi nal Result * POCT rapid strep A (04/29/2025 10:31 AM CDT) Rapid Strep A, POC Negative Negative Swab 04/29/2025 10:3 1 AM CDT Dalia Magaña REGISTERED PUBLIC SURVEYOR POINT OF CARE TEST ORDERABLES Fi nal Result from Last 3 Months Insurance [employer] Care Teams Pelletising Extruder Operator Relationship Specialty Start Date End Date Laurel Parks MD [address] [place] [phone] PCP - General Internal Medicine 05/15/25 Joyce Avilez NP [address] [place] [address] Nurse Practitioner Obstetrics and Gynecology 03/17/24
--- OUTSIDE RECORDS SUMMARY | 2025-06-23 14:09 | XMS_ITS | Data Portability ---
Author Organization [facility] Address [address] [place] [address] Care Team Providers Care Lens Blocker Name Role Phone YARELY NGUYEN Primary Care Provider Assessment Encounter Date Assessment Date Assessment LastModified by Organization Details LastModified Time 11/19/2022 11/19/2022 Annual gynecological exam performed. Patient will come back in a year unless there are new symptoms. [email or web address] Not available 11/19/2022 12:08:47 11/25/2023 11/25/2023 Annual gynecological exam performed. Patient will come back in a year unless there are new symptoms. [email or web address] Not available 11/25/2023 10:53:35 11/29/2024 11/29/2024 Annual gynecological exam performed. Patient will come back in a year unless there are new symptoms. [email or web address] Not available 11/29/2024 09:54:59 Plan of Treatment Reminders Order Date Submit Date Provider Last Modified By Organization Details Last Modified Time Details Appointments None recorded . Lab hbcab (hepatit is B core Ab) igm, serum 2023 024 [facility] (Lab), [address] [place], [address], 4 12:05:01 HBsAg (hepatit is B surface Ag), serum 2023 024 [facility] (Lab), [address] [place], [address], 4 12:05:01 hepatiti s C virus Ab, serum 2023 024 [facility] (Lab), [address], [place], [address], 4 12:05:00 HIV 1+2 AB + HIV 1 p24 Ag, qualitat nancy immunoas say, serum 2023 024 [facility] (Lab), [address], [place], [address], 4 12:05:01 RPR (rapid plasma reagin), serum 2023 024 [facility] (Lab), [address], [place], [address], 4 12:05:02 pregnanc y test, urine 2023 024 [facility], [address], [place], [address], 4 17:06:08 hbcab (hepatit is B core Ab) igm, serum 2022 023 [facility] (Lab), [address], [place], [address], 3 20:37:34 HBsAg (hepatit is B surface Ag), serum 2022 023 [facility] (Lab), [address], [place], [address], 3 20:37:33 hepatiti s C virus Ab, serum 2022 023 [facility] (Lab), [address], [place], [address], 3 20:37:33 unlisted lab - HIV 1/2 antigen/ antibody , reflex confirma tion 2022 023 [facility] (Lab), [address], [place], [address], 3 20:37:33 RPR (rapid plasma reagin), serum 2022 023 [facility] (Lab), [address], [place], [address], 3 20:37:34 Referral colon & rectal surgeon referral 2023 024 [facility], [address] [place], [address], 4 14:35:32 pelvic floor therapy referral 2023 024 [facility] (Outpatient [facility] Therapy), [address], [place], [address], 4 16:52:12 Procedures None recorded . Surgeries None recorded . Imaging MAMMO, screenin g, digital, bilatera l 2022 023 [facility], [address], [place], [address], 4 17:45:17 MAMMO, screenin g, digital, bilatera l 2021 022 [email or web address], [address], [place], [address], 3 10:45:27 Medication Orders Mirena 21 mcg/24 hr (up to 8 years) 52 mg intraute rine device 2023 024 [email or web address] Not available 4 17:28:13 Patient TargetsNo targets recorded. Patient InstructionsNo instructions recorded. Reason for Referral Pelvic Floor Therapy Referra l for Female stress incontinence Referring Physician: Joyce Avilez, [employer], Encounter Date: 03/15/2024 Colon & Rectal Surgeon Refer ral for External hemorrhoids Referring Physician: Joyce Avilez, [employer], Encounter Date: 03/15/2024 Results Created Date Observation Date Name Description Value Unit Range Abnormal Flag Note LastModifiedBy Organization Detail LastModifiedTime 11/19/20 22 11/19/2022 IMAGE GUIDE D PAP AND HPV REGAR DLESS image guided Pap, HPV regardless of Pap result SEE RESULT S BELOW CASE REPOR T: Cytol ogy Gynec ologi seda Repor t Case: [id number] Autho michael halie Provi michael: Joyce Avilez, ESTELA Colle cted: 11/19 1524 Order ing Locat ion: [place] [facility] Recei barbie: 11/20 0114 First Scree n: Giacomo Robertson, CT Rescr een: Radha Walters, CT Speci men: Scree bernardo Pap - Image d, Cervi x STATE MENT OF ADEQU ACY: Satis facto ry for evalu ation Trans forma tion zone compo nent absen t The absen ce of an endoc ervic al compo nent was confi rmed by an addit ional screwilli ner. FINAL DIAGN OSIS: Negat nancy for Intra epith elial Lesio n or Nikki grullon (NIL) . Shift in samara sugge stive of bacte rial vagin osis. Elect estrella hinton kiran d by Radha Walters, CT on 11/21 at 5:07 PM ----- ----- ----- ----- ----- ----- ----- ----- ----- ----- ----- ----- ----- ----- ----- ----- ----- ---- HPV RESUL TS: HPV mRNA E6/E7 : No HPV mRNA Detec vicente NOTE: This high risk HPV mRNA assay detec ts fourt een high- risk HPV types (16, 18, 31, 33, 35, 39, 45, 51, 52, 56, 58, 59, 66, 68) witho ut diffe renti ation . COMME NT: Note: This speci men was revie wed by a Cytot echno logis t and/o r Patho logis t (as indic ated in this repor t) after evalu ation using the Thinp rep Imagi ng Syste m. CLINI SEDA INFOR MATIO N: Menst rual Statu s: LMP (if appli cable ): Clini seda Histo ry/Pr eviou s Pap: Type of Neopl patric (if appli cable ): Signi fican t Clini seda Findi ngs: Other Histo ry: Hormo aravind (if appli cable ): PAP EDUCA ENRIQUE L NOTE: The Pap Test is a scree bernardo test with an inher ent false negat nancy rate. Liqui d-bas ed sampl ing may decre ase, but will not elimi kennedi, false negat nancy resul ts. A negat nancy resul t does not precl ude the prese nce and/o r devel opmen t of disea se, since the prese nce of abnor mal cells in the sampl e depen ds on the locat ion of the lesio n and sampl ing techn ique. Dulce nued regul ar scree bernardo is the best metho d of cance r preve ntion . If repor vicente cytol ogic findi ng do not corre late with physi seda and/o r histo rical findi ngs, furth er inves tigat ion is recom tang d, as clini leodan dudley nted. Not Available [facility] (Lab) [address], [place], [address], 11/21/2022 18:10:35 11/25/20 23 11/25/2023 HEPAT ITIS C ANTIB YOLANDA SCREE N, REFLE X TO CONFI RMATI ON hepatitis C antibody Non-re active non-re active Antib odies to HCV Not Detec vicente, does not exclu de the possi bilit y of expos ure to HCV. Not Available [facility] (Lab) [address], [place], [address], 11/26/2023 20:37:32 11/25/20 23 11/25/2023 HIV 1/2 ANTIG EN/AN TIBOD Y, REFLE X CONFI RMATI ON HIV antigen/anti body Nonrea ctive nonrea ctive HIV-1 antig en and HIV-1 /HIV- 2 antib odies were not detec vicente. No labor atory evide nce of HIV infec tion. Not Available [facility] (Lab) [address], [place], [address], 11/26/2023 20:37:33 11/25/20 23 11/25/2023 HEPAT ITIS B SURFA CE ANTIG EN hepatitis B surface antigen Non-re active non-re active This assay was perfo rmed using [employer] ratio n reage nts and test kits. Value s obtai rama with other assay metho ds or kits canno t be used inter lombardo eably . Not Available [facility] (Lab) [address], [place], [address], 11/26/2023 20:37:33 11/25/20 23 11/25/2023 SYPHI LIS, RPR SCREE N, REFLE X/TIT RE/CO NFIRM ATION RPR screen Nonrea ctive nonrea ctive Not Available [facility] (Lab) [address], [place], [address], 11/26/2023 20:37:34 11/25/20 23 11/25/2023 HEPAT ITIS B CORE, IGM hepatitis B core IgM antibody Negati ve negati ve Not Available [facility] (Lab) [address], [place], [address], 11/26/2023 20:37:34 11/25/20 23 11/25/2023 IMAGE GUIDE D PAP AND HPV REGAR DLESS image guided Pap, HPV regardless of Pap result SEE RESULT S BELOW CASE REPOR T: Cytol ogy Gynec ologi seda Repor t Case: [id number] Autho rizin g Provi michael: Joyce Avilez, ESTELA Colle cted: 11/25 1416 Order ing Locat ion: [place] [facility] Recei barbie: 11/26 0659 First Scree n: Nacha mpass ak, Sivil ay, CT Rescr een: Myrtle Peter , CT Speci men: Scree bernardo Pap - Image d, Cervi x STATE MENT OF ADEQU ACY: Satis facto ry for evalu ation Trans forma tion zone compo nent prese nt FINAL DIAGN OSIS: Negat nancy for Intra epith elial Lesio n or Nikki grullon (NIL) . Shift in samara sugge stive of bacte rial vagin osis. Elect estrella jamaal kiran d by Myrtle Peter CT on 11/28 at 11:51 AM ----- ----- ----- ----- ----- ----- ----- ----- ----- ----- ----- ----- ----- ----- ----- ----- ----- ---- HPV RESUL TS: HPV mRNA E6/E7 : No HPV mRNA Detec vicente NOTE: This high risk HPV mRNA assay detec ts fourt een high- risk HPV types (16, 18, 31, 33, 35, 39, 45, 51, 52, 56, 58, 59, 66, 68) witho ut diffe renti ation . COMME NT: This speci men was revie wed by a Cytot echno logis t and/o r Patho logis t (as indic ated in this repor t) after evalu ation using the Thinp rep Imagi ng Syste m. CLINI SEDA INFOR MATIO N: Menst rual Statu s: LMP (if appli cable ): Clini seda Histo ry/Pr eviou s Pap: Type of Neopl patric (if appli cable ): Signi fican t Clini seda Findi ngs: Other Histo ry: Hormo aravind (if appli cable ): PAP EDUCA ENRIQUE L NOTE: The Pap Test is a scree bernardo test with an inher ent false negat nancy rate. Liqui d-bas ed sampl ing may decre ase, but will not elimi kennedi, false negat nancy resul ts. A negat nancy resul t does not precl ude the prese nce and/o r devel opmen t of disea se, since the prese nce of abnor mal cells in the sampl e depen ds on the locat ion of the lesio n and sampl ing techn ique. Dulce nued regul ar scree bernardo is the best metho d of cance r preve ntion . If repor vicente cytol ogic findi ng do not corre late with physi seda and/o r histo rical findi ngs, furth er inves tigat ion is recom tang d, as clini leodan dudley nted. Not Available [facility] (Lab) [address], [place], [address], 11/28/2023 12:54:59 11/25/20 23 11/25/2023 TRICH OMONA S VAGIN EVETTE (RRNA ) trichomonas vaginalis ribosomal RNA (rrna) Negati ve negati ve Not Available [facility] (Lab) [address], [place], [address], 11/28/2023 12:55:00 11/25/20 23 11/25/2023 CT/GC (ALEX) , THINP REP VIAL chlamydia trachomatis, PCR Negati ve negati ve Not Available [facility] (Lab) [address], [place], [address], 11/28/2023 12:55:00 11/25/20 23 11/25/2023 CT/GC (ALEX) , THINP REP VIAL neisseria gonorrhoeae, PCR Negati ve negati ve Not Available [facility] (Lab) [address], [place], [address], 11/28/2023 12:55:00 02/11/20 24 02/11/2024 pregn veronica test, urine HCG negati ve Not Available [place] [address], [place], [address], 02/11/2024 17:05:54 11/29/20 24 11/29/2024 HEPAT ITIS C ANTIB YOLANDA SCREE N, REFLE X TO CONFI RMATI ON hepatitis C antibody Non-re active non-re active Antib odies to HCV Not Detec vicente, does not exclu de the possi bilit y of expos ure to HCV. Not Available [facility] (Lab) [address] [place], [address], 11/30/2024 12:05:00 11/29/20 24 11/29/2024 HIV 1/2 ANTIG EN/AN TIBOD Y, REFLE X CONFI RMATI ON HIV antigen/anti body Nonrea ctive nonrea ctive HIV-1 antig en and HIV-1 /HIV- 2 antib odies were not detec vicente. No labor atory evide nce of HIV infec tion. Not Available [facility] (Lab) [address], [place], [address], 11/30/2024 12:05:01 11/29/20 24 11/29/2024 HEPAT ITIS B SURFA CE ANTIG EN hepatitis B surface antigen Non-re active non-re active This assay was perfo rmed using [employer] reage nts and test kits. Value s obtai rama with other assay metho ds or kits canno t be used inter lombardo eably . Not Available [facility] (Lab) [address], [place], [address], 11/30/2024 12:05:01 11/29/20 24 11/29/2024 HEPAT ITIS B CORE, IGM hepatitis B core IgM antibody Non-re active non-re active IgM anti- HBc not detec vicente. Does not exclu de the possi bilit y of expos ure to or infec tion with HBV. Not Available [facility] (Lab) [address] [place], [address], 11/30/2024 12:05:01 11/29/20 24 11/29/2024 RPR SCREE N, REFLE X TITER /CONF IRMAT ION RPR screen Nonrea ctive nonrea ctive Not Available [facility] (Lab) [address], [place], [address], 11/30/2024 12:05:02 11/29/20 24 11/29/2024 IMAGE GUIDE D PAP AND HPV REGAR DLESS image guided Pap, HPV regardless of Pap result SEE RESULT S BELOW CASE REPOR T: Cytol ogy Gynec ologi seda Repor t Case: [id number] Autho michael ambrose Provi michael: Joyce Avilez, ESTELA Colle cted: 11/29 1105 Order ing Locat ion: [place] [facility] [place] Recei barbie: 11/30 1200 First Scree n: Dilia Diana, CT Rescr een: Ghassan engle, Blayne krishna, CT Speci men: Scree bernardo Pap - Image d, Cervi x STATE MENT OF ADEQU ACY: Satis facto ry for evalu ation Trans forma tion zone compo nent absen t The absen ce of an endoc ervic al compo nent was confi rmed by an addit ional scree ner. ----- ----- ----- ----- ----- ----- ----- ----- ----- ----- ----- ----- ----- ----- ----- ----- ----- ---- FINAL DIAGN OSIS: Negat nancy for Intra epith elial Jonelle pardo or Nikki grullon (NIL) . Shift in samara sugge stive of bacte rial vagin osis. Elect estrella baez by Blayne engle, CT on 025 at 2356 PIZZ[employer] DELIVERY ----- ----- ----- ----- ----- ----- ----- ----- ----- ----- ----- ----- ----- ----- ----- ----- ----- ---- HPV RESUL TS: HPV mRNA E6/E7 : No HPV mRNA Detec vicente NOTE: This high risk HPV mRNA assay detec ts fourt een high- risk HPV types (16, 18, 31, 33, 35, 39, 45, 51, 52, 56, 58, 59, 66, 68) witho ut diffe renti ation . COMME NT: This speci men was revie wed by a Cytot echno logis t and/o r Patho logis t (as indic ated in this repor t) after evalu ation using the Thinp rep Imagi ng Syste m. CLINI SEDA INFOR MATIO N: Menst rual Statu s: LMP (if appli cable ): Clini seda Histo ry/Pr eviou s Pap: Type of Neopl patric (if appli cable ): Signi fican t Clini seda Findi ngs: Other Histo ry: Hormo aravind (if appli cable ): PAP EDUCA ENRIQUE L NOTE: The Pap Test is a scree bernardo test with an inher ent false negat nancy rate. Liqui d-bas ed sampl ing may decre ase, but will not elimi kennedi, false negat nancy resul ts. A negat nancy resul t does not precl ude the prese nce and/o r devel opmen t of disea se, since the prese nce of abnor mal cells in the sampl e depen ds on the locat ion of the lesio n and sampl ing techn ique. Dulce nued regul ar scree bernardo is the best metho d of cance r preve ntion . If repor vicente cytol ogic findi ng do not corre late with physi seda and/o r histo rical findi ngs, furth er inves tigat ion is recom tang d, as clini leodan dudley nted. Not Available [facility] (Lab) [address], [place], [address], 12/10/2024 01:00:33 11/29/20 24 11/29/2024 TRICH OMONA S VAGIN EVETTE (RRNA ) trichomonas vaginalis ribosomal RNA (rrna) Negati ve negati ve Not Available [facility] (Lab) [address], [place], [address], 12/10/2024 01:00:33 11/29/20 24 11/29/2024 CT/GC (ALEX) , THINP REP VIAL chlamydia trachomatis, PCR Negati ve negati ve Not Available [facility] (Lab) [address], [place], [address], 12/10/2024 01:00:34 11/29/20 24 11/29/2024 CT/GC (ALEX) , THINP REP VIAL neisseria gonorrhoeae, PCR Negati ve negati ve Not Available [facility] (Lab) [address], [place], [address], 12/10/2024 01:00:34 06/22/20 24 06/22/2024 MAMMO , scree brenardo, digit al, bilat eral No observ ation record ed. [email or web address] [facility] [address], [place], [address], 06/23/2024 17:55:47 06/23/20 24 06/22/2024 MAMMO , scree bernardo, digit al, bilat eral No observ ation record ed. [email or web address] [facility] [address], [place], [address], 06/30/2024 15:05:49 07/24/20 24 07/23/2024 MRI, brain + brain stem, w/ contr ast No observ ation record ed. [email or web address] [facility] [address], [place], [address], 07/26/2024 12:25:00 07/26/20 24 07/23/2024 XR, entir e spine No observ ation record ed. [email or web address] [facility] [address], [place], [address], 07/26/2024 12:25:00 07/26/20 24 07/26/2024 MAMMO , diagn ostic , unila teral No observ ation record ed. [facility] [address], [place], [address], 08/05/2024 13:32:31 07/26/20 24 07/26/2024 MAMMO , diagn ostic , unila teral No observ ation record ed. [facility] [address], [place], [address], 08/05/2024 13:33:56 07/26/2007/26/2024 US, breas t, unila teral No observ ation record ed. [facility] [address], [place], [address], 08/05/2024 13:34:32 08/04/2007/26/2024 MAMMO , diagn ostic , digit al, bilat eral No observ ation record ed. [facility] [address], [place], [address], 12/02/2024 11:01:26 Result Notes None recorded. Procedures Surgical History Date Name Laterality Status Provider Name and Address Organization Details Recorded Time 06/22/20 Date of Last Mammogram completed Amy Langston [facility] 11/29/2024 09:57:56 02/11/20 24 IUD Removal completed ARLETH Iqbal [address], [place], [address], [facility] 02/11/2024 17:15:57 02/11/20 24 IUD Insertion completed ARLETH Iqbal [address], [place], [address], [facility] 02/11/2024 17:15:38 11/25/20 23 Date of Last Pap Smear completed Amy Solisney [facility] 11/29/2024 10:00:33 12/01/19 15 Colonoscopy completed [facility] 05/23/2025 00:11:35 10/01/20 13 completed [facility] 11/19/2022 12:09:43 10/01/20 13 Date of Last Colonoscopy completed [facility] 11/19/2022 12:09:43 10/01/20 13 Colonoscopy completed [facility] 12/10/2022 19:54:14 10/31/20 12 diagnostic laparoscopy of female pelvis completed ARLETH Iqbal [address], [place], [address], [facility] 11/19/2022 14:00:11 05/01/20 05 Endometrial Biopsy completed [facility] 12/10/2022 19:55:12 03/18/20 04 cryosurgery completed [facility] 12/10/2022 19:58:30 12/01/19 04 Colposcopy completed [facility] 12/10/2022 19:57:50 12/01/19 04 Colposcopy completed [facility] 12/10/2022 19:58:40 03/30/20 03 Caesarean Section completed [facility] 12/10/2022 19:51:53 12/01/19 03 excision of skin completed [facility] 05/23/2025 00:12:16 12/01/18 94 Tonsillectomy completed [facility] 12/10/2022 19:52:30 procedure on kidney completed Noreen Strickland [facility] 05/23/2025 00:12:55 [facility]25 00:13:32 arthroscopic repair of rotator cuff completed [facility] 05/23/2025 00:14:14 Imaging Results None recorded. Procedure Notes None recorded. Medical Equipment None Reported. Allergies Allergen ID Allergen Name Allergen Category Reaction Reaction Severity Criticality Documentation Date Start Date Code Code System Note Provider Name and Address Organization Details Recorded Time 85404 latex environme nt,medica tion Not available Not available Not available 11/17/2020 83389 91 RxNorm Comme nt: [facility]; Not Available [facility] 0 14:17:48 72837 Non-stero idal anti-infl ammatory agent (product) medicatio n Not available Not available Not available 11/17/2020 49172 005 SNOMED Comme nt: [facility]at [facility]; Not Available [facility] 0 14:17:48 Medications Name Sig Start Date Stop Date Status Note LastModified by Organization Details LastModified Time amoxicill in 500 mg capsule take 1 capsule (500MG) by oral route 3 times every day for 10 days 09/01 completed Prescrib ed Elsewher e: No Locat ion: [facility] By: cmedical Encount er DateTime : 08/23/20 11:01:38 AM Not Available Not Available Not Available Mirena 21 mcg/24 hr (up to 8 years) 52 mg intrauter ine device Take 1 device by intraute rine route. 2023 active Not Available Not Available Not Avai lable venlafaxi ne ER 37.5 mg capsule,e xtended release 24 hr take 1 capsule by oral route every day with food 09/13 completed Prescrib ed Elsewher e: Yes Loca tion: [facility] By: [email or web address] Encounte r DateTime : 08/19/20 13 11:15:00 AM Not Available Not Available Not Available prednison e 10 mg tablet 03/15 completed Not Available Not Available Not Available trazodone 50 mg tablet 11/29 completed Not Available Not Available Not Available valacyclo vir 1 gram tablet TAKE 1 TABLET BY MOUTH TWICE DAILY FOR 2 DAYS active Not Available Not Available No t Available metronida zole 0.75 % (37.5 mg/5 gram) vaginal gel INSERT 1 APPLICAT ORFUL VAGINALL Y EVERY DAY AT BEDTIME FOR 5 NIGHTS 03/15 completed Not Available Not Available Not Available sertralin e 100 mg tablet 11/29 completed Not Available Not Available Not Available Diflucan 150 mg tablet take 1 tablet (150MG) by oral route once 09/13 completed Prescrib tomi Inman e: No Locat ion: [facility] By: [email or web address] Monica r DateTime : 08/23/20 13 11:01:38 AM Not Available Not Available Not Available metronida zole 500 mg tablet TAKE 1 TABLET BY MOUTH TWICE DAILY FOR 7 DAYS active Not Available Not Available No t Available hydroxyzi ne HCl 50 mg tablet 11/29 completed Not Available Not Available Not Available lorazepam 0.5 mg tablet TAKE 1 TABLET (0.5 MG) BY MOUTH 1 TIME DAILY NEEDED FOR ANXIETY (*USE SPARINGL Y*). 11/29 completed Not Available Not Available Not Available oseltamiv ir 75 mg capsule TAKE 1 CAPSULE BY MOUTH TWICE DAILY FOR 5 DAYS active Not Available Not Available No t Available prednison e 50 mg tablet 11/29 completed Not Available Not Available Not Available sertralin e 50 mg tablet TAKE 1 TABLET BY MOUTH EVERY DAY 03/15 completed Not Available Not Available Not Available metaxalon e 800 mg tablet 11/29 completed Not Available Not Available Not Available multivita min active Not Available Not Available Not Available Probiotic active Not Available Not Annalisa ilable Not Available bupropion HCl 150 mg tablet,12 hr sustained -release( smoking deterrent ) active Not Available Not Available Not Available ID NOW COVID-19 Test Kit TEST DIRECTED TODAY 03/15 completed Not Available Not Available Not Available sertralin e 200 mg capsule TAKE 1 CAPSULE BY MOUTH DAILY active Not Available Not Available No t Available Zepbound 10 mg/0.5 mL subcutane ous pen injector INJECT 10 MG UNDER THE SKIN EVERY 7 DAYS active Not Available Not Available No t Available Zepbound 5 mg/0.5 mL subcutane ous pen injector INJECT 5 MG UNDER THE SKIN EVERY 7 DAYS 11/29 completed Not Available Not Available Not Available Zepbound 2.5 mg/0.5 mL subcutane ous pen injector ADMINIST ER 2.5 MG UNDER THE SKIN EVERY 7 DAYS 11/29 completed Not Available Not Available Not Available Zepbound 7.5 mg/0.5 mL subcutane ous pen injector active Not Available Not Available Not Available Vitals Date Recorded Body height Body weight Systolic And Diastolic Provider Name and Address Organization Details Last Updated DateTime 02/11/2024 161.29 cm 53684.96 g 126/85 mm[Hg] Michelle Ennis [facility] 02/11/2024 17:04:14 Date Recorded Body height Body mass index (BMI) Body weight Systolic And Diastolic Provider Name and Address Organization Details Last Updated DateTime 03/15/2024 161.29 cm 29.1 kg/m2 81107.93 g 130/80 mm[Hg] Marii Jacobsen [facility] 03/15/2024 10:59:39 Date Recorded Body weight Body mass index (BMI) Body height Systolic And Diastolic Provider Name and Address Organization Details Last Updated DateTime 11/19/2022 69564.77 g 32.6 kg/m2 161.29 cm 133/89 mm[Hg] Noreen Strickladn [facility] 11/19/2022 12:09:17 Date Recorded Body height Body mass index (BMI) Body weight Systolic And Diastolic Provider Name and Address Organization Details Last Updated DateTime 11/25/2023 161.29 cm 27.5 kg/m2 49839.59 g 134/90 mm[Hg] Taina Paula [facility] 11/25/2023 11:03:17 Date Recorded Body height Body mass index (BMI) Body weight Systolic And Diastolic Provider Name and Address Organization Details Last Updated DateTime 11/29/2024 161.29 cm 31.1 kg/m2 72925.6 g 122/84 mm[Hg] Amy Langston [facility] 11/29/2024 09:57:31 Social History Question Answer Notes LastModified by Organizat ion Details LastModified Time Tobacco Smoking Status Current Every Day Smoker Noreen Em gonzalez, [facility] 12/10/2022 19:51:39 Do You Have An Advance Directive? No [email or web address] Information not available 11/29/2024 How Many Years Have You Consumed Alcohol? 20 [email or web address] Information not available 11/19/2022 Are You Blind Or Do You Have Difficulty Seeing? No [email or web address] Information not available 11/19/2022 What Is Your Level Of Caffeine Consumption? Occasional [email or web address] Information not available 11/29/2024 How Much Tobacco Do You Chew? None [email or web address] Information not available 11/19/2022 In The 14 Days Before Symptom Onset, Have You Had Close Contact With A Laboratory-confir med COVID-19 While That Case Was Ill? No [email or web address] Information not available 12/10/2022 In The 14 Days Before Symptom Onset, Have You Had Close Contact With A Person Who Is Under Investigation For COVID-19 While That Person Was Ill? No [email or web address] Information not available 11/19/2022 Have You Been To An Area Known To Be High Risk For COVID-19? No [email or web address] Information not available 11/19/2022 Are You Deaf Or Do You Have Serious Difficulty Hearing? No [email or web address] Information not available 11/19/2022 What Type Of Diet Are You Following? REGULAR [email or web address] Information not available 11/19/2022 What Is The Highest Grade Or Level Of School You Have Completed Or The Highest Degree You Have Received? [id number] [email or web address] Information not available 11/19/2022 Are There Any Guns Present In Your Home? No [email or web address] Information not available 11/19/2022 Have You Ever Been Counseled For Unhealthy Alcohol Use? No [email or web address] Information not available 12/10/2022 Do You Use Protection During Sex? Usually dswayne Information not available 02/11/2024 Do You Use Your Seat Belt Or Car Seat Routinely? Yes [email or web address] Information not available 11/19/2022 Do You Have Smoke And Carbon Monoxide Detectors In Your Home? Yes [email or web address] Information not available 11/19/2022 At What Age Did You Start Smoking Tobacco? 14 [email or web address] Information not available 11/19/2022 How Much Tobacco Do You Smoke? No [email or web address] Information not available 11/19/2022 Do You Use Sunscreen Routinely? No [email or web address] Information not available 11/19/2022 Has Tobacco Cessation Counseling Been Provided? No [email or web address] Information not available 12/10/2022 How Many Years Have You Smoked Tobacco? 20 [email or web address] Information not available 11/19/2022 Have You Used IV Drugs? No [email or web address] Information not available 11/19/2022 Do You Have Difficulty Walking Or Climbing Stairs? No [email or web address] Information not available 12/10/2022 Sex: Unknown Functional Status Question Answer Note LastModified by Organizat ion Details LastModified Time Do you use any illicit or recreational drugs? No [email or web address] Information not available 11/19/2022 Do you or have you ever used any other forms of tobacco or nicotine? No [email or web address] Information not available 12/10/2022 What is your level of alcohol consumption? Occasional [email or web address] Information not available 11/19/2022 Are you able to walk? YESWOREST [email or web address] Information not available 11/19/2022 Are you able to care for yourself? Yes [email or web address] Information not available 12/10/2022 What is your occupation? [employer] Information not available 03/15/2024 Do you have difficulty dressing or bathing? No [email or web address] Information not available 12/10/2022 What is your exercise level? Occasional [email or web address] Information not available 11/19/2022 Mental Status Question Answer Note LastModified by Organization D etails LastModified Time Do you feel stressed (tense, restless, nervous, or anxious, or unable to sleep at night)? [id number] [email or web address] Information not available 11/29/2024 Family History Relationship Description Onset Age of this Age Resolved Age Notes LastModified by Organization Details LastModified Time Maternal Uncle Hypertensive disorder [email or web address] Not available 11/19 12:09:42 Maternal Uncle Myocardial infarction [email or web address] Not available 11/01 12:09:42 Maternal Uncle Heart disease [email or web address] Not available 11/19 12:09:42 Maternal Uncle Depressive disorder [email or web address] Not available 11/19 12:09:42 Maternal Uncle Mental disorder [email or web address] Not available 11/19 12:09:42 Paternal Grandfather Myocardial infarction [email or web address] Not available 11/01 12:09:42 Mother Myocardial infarction Not available 11/01 12:09:42 Mother Heart disease 60 [email or web address] Not available 2023 10:03:29 Mother Hypertensive disorder [email or web address] Not available 11/19 12:09:42 Mother Pre-eclampsi a [email or web address] Not available 11/19 12:09:42 Brother Mental disorder [email or web address] Not available 11/19 12:09:42 Brother Depressive disorder Not available 11/19 12:09:42 Maternal Aunt Hypertensive disorder [email or web address] Not available 11/19 12:09:42 Maternal Aunt Heart disease [email or web address] Not available 11/19 12:09:42 Maternal Aunt Depressive disorder [email or web address] Not available 11/19 12:09:42 Maternal Aunt Mental disorder [email or web address] Not available 11/19 12:09:42 Father Hypertensive disorder [email or web address] Not available 11/19 12:09:42 Father Depressive disorder [email or web address] Not available 11/19 12:09:42 Maternal Grandfather Heart disease [email or web address] Not available 11/19 12:09:42 Maternal Grandfather Coronary arterioscler osis [email or web address] Not available 2023 09:48:40 Paternal Uncle Mental disorder [email or web address] Not available 11/19 12:09:42 Paternal Uncle Depressive disorder [email or web address] Not available 11/19 12:09:42 Notes:Maternal grandfather: Coronary artery disease Medical History Condition Response Allergies (Food, seasonal, environmental ) N Other N Breast Cancer N Drug/Latex Allergies/Reactions Y Blood Transfusion N Dermatologic Disorders N Lung Disease N Defects or Inherited Disease N Breast Problem N Gestational Diabetes N Hematologic disorders N Anesthesia Complications N History of STI N Deep Vein Thrombosis N Polycystic ovary syndrome N Anxiety Disorder N Autoimmune disease N Arthritis N Infertility N Polyps N Acid Reflux (GERD) N History of abnormal pap Y Cancer N Stroke N Varicosities N Neurologic/Epilepsy N Endometriosis Y High Cholesterol N Headaches N Fibromyalgia N Kidney Disease N Heart Problems Y Kidney or Bladder Problems Y Thyroid Problems N GI Problems N Eating Disorder N Anemia N Art (IVF or FET) N Psychiatric Illness N Ovarian Cancer N Diabetes N Pulmonary (TB, Asthma) N Hepatitis/Liver Disease N No Past Medical History N Eczema Y Urinary Tract Infection N Abuse/Domestic Violence N Asthma N Trauma/Violence N Depression/ depression N Heart Disease Y Pre-Eclampsia N Hypertension N Osteoporosis N Thrombophilias N Gynecological History Statement/Question Response Date of Last Mammogram 06/22/2024 Date of LMP 11/23/2024 N Was last menstrual period normal N STIs/STDs N Date of control 02/11/2024 Date of Last Colonoscopy 10/01/2013 IUD Desired Control Method IUD Abnormal Pap Y On BCP's at Conception? N Colposcopy 12/01/2003 HPV Vaccine Y Duration of Flow (days) 14 Current Control Method IUD Age at First Child 19 Frequency of Cycle (Q days) 21 Sexually Active? Y Menses Monthly N Date of DEXA bone scan Age of first menstrual cycle 14 Date of Last Pap Smear 11/25/2023 Sexual Problems? N LMP Approximate 10/01/2013 N 11/24/2023 Obstetrics History GPAL:G 3 P 1 1 1 2 Type Value Full Term 1 Spontaneous 1 Premature 1 Living 2 Total 3 Past Encounters Encounter ID Performer Location Encounter Start Date Encounter Closed Date Diagnosis/Indication Diagnosis SNOMED-CT Code Diagnosis ICD10 Code Diagnosis Note [id number] [facility] [place] [address] [address] 11/19/2022 11:11:09 11/19/2022 15:58:47 Screening for malignant neoplasm of breast 920129737 Z12.39 Gynecologi c examination 95070175 Z01.419 Suggested Calcium with Vitamin D 1200-1500m g daily. Patient advised to get an annual flu shot in the fall and she could obtain at [facility] or [facility] care clinic. Also to obtain TDap vaccinatio n if you have not had one in the last 10 years. Recommend yearly mammograms . Encouraged monthly self breast exams. Encourage safe sexual practices, to use condoms and limit partners if not already in a monogamous relationsh ip. Engage in daily exercise of low impact aerobic exercise 45-60 minutes 4-5 times weekly. Avoid tobacco and illicit drugs as well as using moderation with alcohol intake less than 1-2 8 oz beverages daily. This lifestyle behavior pattern will lead to less health conditions and longer life span. If BMI greater than 25 weight watchers or dietary consult advised. All questions have been answered. Patient appears to understand informatio n, but if you have any questions please call or respond to this email. [facility] - Mirena IUD, inserted 2015. Due for removal/re -insert 2023Hx of abnormal paps per patient, with procedure done around 20 years agoLast pap 2018 - normalPap done todaySTI testing declinedGe netic testing discussedM ammogram order givenEncou raged to establish care with a [facility] in 1 year or sooner if needed [id number] [facility] [place] [address] [address] 11/25/2023 10:46:18 11/25/2023 13:44:48 Gynecologic examination 10637086 Z01.419 Z11.51 [facility] - mirena IUD, inserted 07/2016desi res removal replacemen t d/t increased bleedingpa p updatedgc/ ct/trich testing added to papserum STI testing ordered per pt requestmam mogram order given and encouraged to scheduleen couraged annual exam with [facility] for mirena removal/re placement Suggested Calcium with Vitamin D daily. Patient advised to get an annual flu shot in the fall and she could obtain at [facility] or [facility] care clinic. Also to obtain TDap vaccinatio n if you have not had one in the last 10 years. Recommend yearly mammograms . Encouraged monthly self breast exams. Encourage safe sexual practices, to use condoms and limit partners if not already in a monogamous relationsh ip. Engage in daily exercise of low impact aerobic exercise 45-60 minutes 4-5 times weekly. Avoid tobacco and illicit drugs. This lifestyle behavior pattern will lead to less health conditions and longer life span. If BMI greater than 25 dietary consult advised. All questions have been answered. Patient appears to understand informatio n, but if you have any questions please call or respond to this email. Screening for malignant neoplasm of breast 367024623 Z12.39 Venereal d isease screening 954107650 Z11.3 Sexually t ransmitted infectious disease 0170003 A64 [facility] ion care management [id number] Z30.9 [id number] [facility] [place] [address],[place] [address] 11/29/2024 09:25:53 11/29/2024 11:11:10 Gynecologic examination 71100892 Z11.8 Z11.3 [facility] - Mirena IUD (will 02/11/2032) Pap - done todaySTI screen - gc/ct/tric h testing added to pap, HIV/hep B&C/Syphil is testing ordered per pt requestMam mogram - UTD, due next 5Colo n cancer screening - [facility] labs - UTD/[facility] in 1 yr or sooner if needed Suggested Calcium with Vitamin D daily. Patient advised to get an annual flu shot in the fall and she could obtain at local pharmacy. Also to obtain TDap vaccinatio n if you have not had one in the last 10 years. Recommend yearly mammograms . Encouraged monthly self breast exams. Encourage safe sexual practices, to use condoms and limit partners if not already in a monogamous relationsh ip. Engage in regular exercise. Avoid tobacco and illicit drugs. This lifestyle behavior pattern will lead to less health conditions and longer life span. If BMI greater than 25 dietary consult advised. All questions have been answered. Venereal d isease screening 012794098 Z11.3 Sexually t ransmitted infectious disease 7642641 A64 [id number] [facility] [place] [address],[facility] [place] [address] 02/11/2024 16:40:32 02/11/2024 17:24:08 Insertion of intrauterine contraceptive device 70634916 Z30.430 r/b of IUD removal/re placement discussed with patientcon sents reviewed and signedUPT (-)IUD removal/re placement performedp recautions reviewedRT C for string check in 4-6 weeks Removal of intrauterine contraceptive device done 0794211279 30656 Z30.432 Screening procedure 2012 5006 Z13.9 [id number] [facility] [place] [address] [address] 03/15/2024 10:57:10 03/16/2024 03:22:32 IUD check 153133348 Z30.431 Patient is here for 4-6wk IUD string check.norm al appearing IUD strings noted on exam She denies complicati ons, pain, or unpleasant side effects. Happy with this control method. Wishes to continue. Female str ess incontinence 29568145 N39.3 recommende d pelvic floor physical therapyref erral placed, number given to schedule External hemorrhoids 239 40655 K64.4 opts to pursue surgical consult - referral placednumb er given to schedulequ estions answeredRT C for WWE or sooner if needed Time spent in visit is a total of 30 mins with at least 50% of visit consisting of counseling and review of plan of care. Health Concerns Section Related Observation LastModified by Organization Detai ls LastModified Time None Recorded Concern Status LastModified by Organization Details LastModified Time None Recorded Advance Directives Directive N: Payers Insurance Date Sequence Insurance Name Policy Number Policy Aiken Covered Member ID Aiken Member ID Guarantor Name 02/12/2024 2 [employer] [id number] Neal Cruz [id number] Crystal A Blasa 11/26/2024 1 [facility] [employer] - [facility] [id number] Crystal A Blasa [id number] Crystal A Blasa 03/15/2024 2 [employer] Lara Blasa NONE Crystal A Blasa 03/14/2024 2 [employer] [facility] P553 Neal Cruz [id number] Crystal A Blasa Notes Date Note Type Note Provider Name and Address Organization Details Recorded Time 11/19/20 22 text/ht ml Annual GYNReported by PatientGenitourinary symptomsFor menstrual cycle, patient reportsnormal menses. For urinary symptoms, patient reportsno hematuriaandno incontinence. For vulva, patient reportsno genital lesion. For vagina, patient reportsnormal vaginal discharge.Breast symptomsFor breast, patient reportsno breast pain,no breast lump, andno nipple discharge.ContraceptionFor current contraception, patient reportssatisfied with current contraceptionandintrauterine device (iud).Endocrine symptomsFor sexual complaints, patient reportsno sexual complaints,no pain during intercourse, andnormal libido. For menopausal symptoms, patient reportsno menopausal symptomsandnormal vaginal lubrication.Psychological symptomsFor psychological symptoms, patient reportsno depression,no anxiety, andno pmdd.Preventative measuresFor preventive measures, patient reportsencourage self breast examination,encourage regular exercise,encourage no tobacco use, andencourage regular mammograms starting age 40. [facility] [address], [place], [address], [facility] 11/19/2022 13:59:03 11/25/20 23 text/ht ml Annual GYNReported by PatientGenitourinary symptomsFor menstrual cycle, patient reportsnormal menses. For urinary symptoms, patient reportsno hematuriaandno incontinence. For vulva, patient reportsno genital lesion. For vagina, patient reportsnormal vaginal discharge.Breast symptomsFor breast, patient reportsno breast pain,no breast lump, andno nipple discharge.ContraceptionFor current contraception, patient reportssatisfied with current contraceptionandintrauterine device (iud).Endocrine symptomsFor sexual complaints, patient reportsno sexual complaints,no pain during intercourse, andnormal libido. For menopausal symptoms, patient reportsno menopausal symptomsandnormal vaginal lubrication.Psychological symptomsFor psychological symptoms, patient reportsno depression,no anxiety, andno pmdd.Preventative measuresFor preventive measures, patient reportsencourage self breast examination,encourage regular exercise,encourage no tobacco use, andencourage regular mammograms starting age 40.h/o abnormal pap 20 yrs ago requiring procedurelast pap 10/2022 - nilm, HPV (-)currently going through divorce from partner of 20+ years - would like STI testingmirena IUD, inserted 07/2016 - has noticed increased spotting over the last 2 months [facility] [address], [place], [address], [facility] 11/25/2023 13:43:06 02/11/20 24 text/ht ml Patient presents for IUD removal/re- insertion.current Mirena IUD inserted 07/10/2016 [facility] [address], [place], [address], [facility] 02/11/2024 17:18:26 03/15/20 24 text/ht ml 43yo [id number] for IUD checks/p mirena IUD insertion 02/11/2024oing well since insertion has noticed some leaking of urine when coughing/laughing/sneezing/exer cising - as well as when she is having an orgasmneg dysuria or flank pains has had external hemorrhoids for years and would like to discuss management options [facility] [address], [place], [address], [facility] 03/15/2024 14:40:34 11/29/20 24 text/ht ml Annual GYNReported by PatientGenitourinary symptomsFor menstrual cycle, patient reportsnormal menses. For urinary symptoms, patient reportsno hematuriaandno incontinence. For vulva, patient reportsno genital lesion. For vagina, patient reportsnormal vaginal discharge.Breast symptomsFor breast, patient reportsno breast pain,no breast lump, andno nipple discharge.ContraceptionFor current contraception, patient reportssatisfied with current contraceptionandintrauterine device (iud).Endocrine symptomsFor sexual complaints, patient reportsno sexual complaints,no pain during intercourse, andnormal libido. For menopausal symptoms, patient reportsno menopausal symptomsandnormal vaginal lubrication.Psychological symptomsFor psychological symptoms, patient reportsno depression,no anxiety, andno pmdd.Preventative measuresFor preventive measures, patient reportsencourage self breast examination,encourage regular exercise,encourage no tobacco use, andencourage regular mammograms starting age 40.43yo eB - Mirena IUD, inserted 02/11/2024last pap 10/2023 : nilm, HPV (-) new partner recently and would like STI testing [facility] [address], [place], [address], [facility] 11/29/2024 11:10:15 OBGyn Episode Ob Episode Information Episode Created Date Number of Fetuses Patient Bloodtype Patient rh Status Prepregnancy Weight lbs Domestic Partner Domestic Partner Phone Father Name Vessel Traffic Officer Status 12/10/19 23 1 CLOSED Fetus Data First Name Last Name Admitted to NICU Weight (g) Sex Living Outcome Pediatric Complications Fetus ID Race Codes Race Delivery Type 1757.66 9 F Full Term [id number] Primary Stevenson Calculation Initial Stevenson Date Initial Exam Date Initial Exam Provider Initial Ultrasound Date Last Menstrual Period Date Ultra Sound Weeks Gestation 0 Eighteen To Twenty Week Stevenson Update Ultra Sound Date Fundal Height At Umbil Quickening Date Ultra Sound Latest Weeks Gestation Final Stevenson Confirmed By Final Stevenson Confirmed Date Final Stevenson Date Ultra Sound Latest Days Gestation 0 0 Menstrual History Last Menstrual Date Menses Monthly On Bcp Conception Prior Menses Frequency Hcg Plus Date Menarche Onset Age Delivery Information Delivery Date Delivery Type Labor Anesthesia Weeks Gestation Incision Type Labor Labor Length Hrs Delivered By Post Complications Tubal Sterilization Discharge Date Comments 3 31 placenta aburption Discharge Information Feeding Method Contraceptive Method Maternal HG B and HCT Levels Ob Episode Information Episode Created Date Number of Fetuses Patient Bloodtype Patient rh Status Prepregnancy Weight lbs Domestic Partner Domestic Partner Phone Father Name Vessel Traffic Officer Status 12/10/19 23 1 CLOSED Fetus Data First Name Last Name Admitted to NICU Weight (g) Sex Living Outcome Pediatric Complications Fetus ID Race Codes Race Delivery Type 2919.77 1704 F Full Term [id number] Vaginal Delivery Stevenson Calculation Initial Stevenson Date Initial Exam Date Initial Exam Provider Initial Ultrasound Date Last Menstrual Period Date Ultra Sound Weeks Gestation 0 Eighteen To Twenty Week Stevenson Update Ultra Sound Date Fundal Height At Umbil Quickening Date Ultra Sound Latest Weeks Gestation Final Stevenson Confirmed By Final Stevenson Confirmed Date Final Stevenson Date Ultra Sound Latest Days Gestation 0 0 Menstrual History Last Menstrual Date Menses Monthly On Bcp Conception Prior Menses Frequency Hcg Plus Date Menarche Onset Age Delivery Information Delivery Date Delivery Type Labor Anesthesia Weeks Gestation Incision Type Labor Labor Length Hrs Delivered By Post Complications Tubal Sterilization Discharge Date Comments 0 38 placenta abruption Discharge Information Feeding Method Contraceptive Method Maternal HG B and HCT Levels Ob Episode Information Episode Created Date Number of Fetuses Patient Bloodtype Patient rh Status Prepregnancy Weight lbs Domestic Partner Domestic Partner Phone Father Name Vessel Traffic Officer Status 12/10/19 23 1 CLOSED Fetus Data First Name Last Name Admitted to NICU Weight (g) Sex Living Outcome Pediatric Complications Fetus ID Race Codes Race Delivery Type , Spontane ous [id number] Stevenson Calculation Initial Stevenson Date Initial Exam Date Initial Exam Provider Initial Ultrasound Date Last Menstrual Period Date Ultra Sound Weeks Gestation 0 Eighteen To Twenty Week Stevenson Update Ultra Sound Date Fundal Height At Umbil Quickening Date Ultra Sound Latest Weeks Gestation Final Stevenson Confirmed By Final Stevenson Confirmed Date Final Stevenson Date Ultra Sound Latest Days Gestation 0 0 Menstrual History Last Menstrual Date Menses Monthly On Bcp Conception Prior Menses Frequency Hcg Plus Date Menarche Onset Age Delivery Information Delivery Date Delivery Type Labor Anesthesia Weeks Gestation Incision Type Labor Labor Length Hrs Delivered By Post Complications Tubal Sterilization Discharge Date Comments 6 Discharge Information Feeding Method Contraceptive Method Maternal HG B and HCT Levels
== END 2025-06-23 13:53 | disposition home or self-care (01) ==
LOC: CHSIMG 13:57
PROVIDERS: PCP Internal Medicine; Visit Provider Nurse Practitioner
DX: Z12.31 Encounter for screening mammogram for malignant neoplasm of breast (principal); R92.8 Other abnormal and inconclusive findings on diagnostic imaging of breast
CPT/HCPCS: 77063; 77067

== ENCOUNTER 2025-07-19 09:10 | Outpatient (CLI) | payer OTHER, SELFPAY ==
--- NOTE | ~2025-07-19 | MM_ITS ---
EXAMINATION: MM diagnostic [facility] RT w iglesia HISTORY: Right breast asymmetry TECHNIQUE: Additional 3-D tomosynthesis images of the right breast were performed and synthetic 2-D images were generated. CAD analysis was submitted and interpreted. COMPARISON: 06/23/2025 BREAST PARENCHYMAL COMPOSITION:Dense: The breasts are heterogeneously dense, which may obscure small masses. FINDINGS: Inferior right breast asymmetry effaces with spot compression. No persistent mass lesion or distortion seen. No suspicious microcalcification. IMPRESSION: No mammographic evidence for malignancy. BI-RADS Category 1: Negative Reviewed, dictated and finalized at location .
--- OUTSIDE RECORDS SUMMARY | 2025-07-19 09:33 | XMS_ITS | Clinical Summary ---
Author Organization [facility] Address [address] [place] [address] Care Team Providers Care Supervisor Furnace Process Name Role Phone Joyce Avilez BRIM FLEXER Unavailable [phone] Laurel Parks MD Primary Care Provider [phone] Allergies Active Allergy Reactions Criticality Noted Date [...] Department Care Team Description 05/16/2025 Results Follow-Up [facility] at [address] [place] [address] Rosetta Crawford NP XR Chest Pa Lateral 2 Views 05/15/2025 9:53 AM CDT - 05/15/2025 11:59 PM CDT Hospital Encounter [facility] [address] [place] [address] Subacute cough Discharge Disposition: Discharge to home or self care 05/15/2025 9:00 AM CDT Office Visit [facility] at [address] [place] [address] Dalia Magaña NP Subacute cough (Primary Dx); Sore throat 04/29/2025 10:30 AM CDT Office Visit [facility] at [address] [place] [address] Dalia Magaña NP Lower respiratory infection (Primary Dx); Sore throat from Last 3 Months Immunizations Immunization Administration [...] Medical History Date Comments 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 KT: DANIELLE Report ID: [id number] Reading Location: [id number] Procedure Note Edilberto Hein MD - 05/15/2025 [...] Electronically signed by Edilberto Hein M.D. KT: KT Report ID: [id number] Reading Location: [place] [address] Dalia Magaña BRIM FLEXER IMG XR PROCEDURES Final Result * POCT rapid strep A (05/15/2025 9:12 AM CDT) Rapid Strep A, POC Negative Negative Swab 05/15/2025 9:12 AM CDT Dalia Magaña BRIM FLEXER POINT OF CARE TEST ORDERABLES Fi nal Result * COVID-19 POC (04/29/2025 10:31 AM CDT) COVID-19 Ag POC (BD Veritor) Presumptive Negative Presumptive Negative, Invalid [facility] Nasal 04/29/2025 10:3 1 AM CDT Dalia Magaña BRIM FLEXER POINT OF CARE TEST ORDERABLES Fi nal Result [facility] [address] [place] [address] * POCT influenza A/B (04/29/2025 10:31 AM CDT) Rapid Influenza A Ag Negative Negative, Invalid Rapid Influenza B Ag Negative Negative, Invalid Nasal 04/29/2025 10:3 1 AM CDT Dalia Magaña BRIM FLEXER POINT OF CARE TEST ORDERABLES Fi nal Result * POCT rapid strep A (04/29/2025 10:31 AM CDT) Rapid Strep A, POC Negative Negative Swab 04/29/2025 10:3 1 AM CDT Dalia Magaña NP POINT OF CARE TEST ORDERABLES Fi nal Result from Last 3 Months Insurance [employer] Care Teams Supervisor Furnace Process Relationship Specialty Start Date End Date Laurel Parks MD [address] [place] [address] [place] [address] PCP - General Internal Medicine 05/15/25 Joyce Avilez NP [address] [place] [address] Nurse Practitioner Obstetrics and Gynecology 03/17/24
--- OUTSIDE RECORDS SUMMARY | 2025-07-19 09:33 | XMS_ITS | Clinical Summary ---
Author Organization [facility] [employer] [place] Address [address] [place] [address] Care Team Providers Care Embroidery Specialist Name Role Phone Laurel Parks MD Primary Care Provider [phone] Allergies Active Allergy Reactions Criticality Noted Date Comments Latex Itching,Rash Low 09/29/2019 Naproxen Hives,Other (See Comments),Shortness of Breath/Wheezing High 04/14/2024 Reaction: Anaphylaxis, , Reaction: hives, difficulty breathing, Nsaids (Non-Steroidal Anti-Inflammatory Drug) Anaphylaxis,Hives,Itc corbin,Swelling High 09/29/2019 Medications levonorgestreL (MIRENA) 20 mcg/24 hours (7 yrs) 52 mg IUD 6 Active albuterol sulfate HFA 90 mcg/actuation aerosol inhalerIndicati ons:Cough, unspecified type Take 2 Puffs by inhalation every 6 hours as needed for Shortness of Breath or Wheezing. 8.5 Gram 4 Active multivitamin/ir on/folic acid (CENTRUM WOMEN ORAL) Take by mouth. Activ e L.acid/L.casei/ B.bif/B.dennys/FOS (PROBIOTIC BLEND ORAL) Take by mouth. Act nancy sertraline (ZOLOFT) 100 mg tabletIndicatio ns:Mixed anxiety and depressive disorder Take 1 Tablet (100 mg) by mouth daily. 90 Tablet 5 Active buPROPion HCL (Wellbutrin XL) 300 mg Extended Release 24 hour tabletIndicatio ns:Mixed anxiety and depressive disorder Take 1 Tablet (300 mg) by mouth daily in the morning. 90 Tablet Active tirzepatide, weight loss, (Zepbound) 15 mg/0.5 mL Pen InjectorIndicat ions:Obesity (BMI 30.0-34.9) Inject 0.5 mL (15 mg) by subcutaneous injection every 7 days. 6 mL Active Active Problems Problem Noted Date Diagnosed Date Obesity (BMI 30.0-34.9) 11/16/2024 Cervical spine arthritis 09/21/2024 MDD (major depressive disord er), recurrent episode, moderate 04/12/2024 Adjustment disorder 04/12/2024 Generalized anxiety disorder 04/12/2024 Grief 04/12/2024 Tobacco use 09/29/2019 Encounters Date Type Department Care Team Description 07/05/2025 External Device Data STL ABSTRACTION Provider, Abstract 06/24/2025 9:00 AM CDT Video Visit [facility] [employer] [place] [address] [place] [address] Benton Villareal Generalized anxiety disorder (Primary Dx); Major depressive disorder, recurrent, moderate (CMS/HCC) 06/15/2025 External Device Data STL ABSTRACTION Provider, Abstract 06/15/2025 External Device Data STL ABSTRACTION Provider, Abstract 06/08/2025 Chart Note [facility] [employer] [facility] [address] [place] [address] Benton Villareal 06/07/2025 2:30 PM CDT Video Visit [facility] [employer] [place] [address] [place] [address] Benton Villareal Generalized anxiety disorder (Primary Dx); Major depressive disorder, recurrent, moderate (CMS/HCC) 06/02/2025 2:00 PM CDT Office Visit [facility] [employer] [place] [address] [place] [id number] Laurel Parks MD Obesity (BMI 30.0-34.9) (Primary Dx); Mixed anxiety and depressive disorder 05/18/2025 External Device Data STL ABSTRACTION Provider, Abstract 05/12/2025 Telephone [facility] at [address] [place] [address] Benton Villareal Initial Contact (2nd contact. Scheduled initial assessment for 06/07/25 @ 2:30 PM by video.) 05/11/2025 Telephone [facility] at [address] [place] [address] Benton Villareal [employer] Initial Contact (1st contact to schedule initial assessment. Left message.) 05/10/2025 2:30 PM CDT [address] [facility] [place] [address] Laurel Parks MD Obesity (BMI 30.0-34.9) (Primary Dx); Mixed anxiety and depressive disorder 05/03/2025 External Device Data STL ABSTRACTION Provider, Abstract 04/26/2025 External Device Data STL ABSTRACTION Provider, Abstract 04/21/2025 External Device Data STL ABSTRACTION Provider, Abstract 04/20/2025 External Device Data STL ABSTRACTION Provider, Abstract from Last 3 Months Immunizations Immunization Administration [...] Hypertension Father Michael Heart Disease Maternal Grandfather Vito Unknown Maternal Grandmother Heart Disease Mother Martita Hypertension Mother Martita Stroke Mother Martita Unknown Paternal Grandfather Unknown Paternal Grandmother Relation Name Status Comments Brother 1 Brother 2 Armando Daughter 1 Alive Daughter 2 Alive Daughter 3 George Alive Father Michael Alive Maternal Grandfather Vito Maternal Grandmother Mother Martita Paternal Grandfather Paternal [...] Care Team (Late st Contact Info) Description 07/22/2025 9:30 AM CDT Video Visit [facility] [employer] [address] [place] [address] [place] [phone] 08/05/2025 9:30 AM CDT Video Visit [facility] [employer] [place] [address] [place] [address] [employer] [place] Fernandez [address] [facility] [place] [phone] 09/07/2025 2:30 PM CDT Office Visit [facility] [employer] [place] [address] [place] [address] Laurel Parks MD [address] [place] [address] Health Maintenance Due Date Last Done Comments Pre-Diabetes and Diabetes Screening 1980 HPV VACCINES (1 - 3-dose series) 1995 HEPATITIS B VACCINES (1 of 3 - 19+ 3-dose series) 1999 HPV/Cotest (21-29) 2001 HPV/Cotest (30-65) 2010 COVID-19 Vaccine ( - 2023-2 5 season) 2024 03/05/2021, 02/11/2021 INFLUENZA VACCINE (#1) 2025 10/19/2024, 2018 BREAST CANCER SCREENING 07/26/2025 07/26/2024 CERVICAL CANCER SCREENING 11/29/2027 PAP SMEAR 11/29/2027 11/29/2024, 11/01, 11/19/2022, Additional history exists DTAP/TDAP/TD VACCINES (7 - T d or Tdap) 04/14/2035 04/14/2025, 10/16/2009, 01/23/1995, Additional history exists Procedures Procedure Name Priority Date/Time Associated Diagnosis Comments MAMMO 3D AMINTA SCREEN BILAT W OR WO CAD Routine 07/26/2024 11:50 AM CDT from Last 3 Months or Most Recently Relevant to Health Maintenance Results * MAMMO 3D AMINTA SCREEN BILAT W OR WO CAD (07/26/2024 11:50 AM CDT) Anatomical Region Laterality Modality Breast Bilateral Mammography Joyce Avilez PIPE FINISHER MAMMO ORDERABLES Final Result from Last 3 Months or Most Recently Relevant to Health Maintenance Insurance ALLEGIANCE * Guarantor: [employer] Account Type Relation to Patient Date of Phone Billing Address Corporate Employer ATTN: [employer] [address] [address] Care Teams Embroidery Specialist Relationship Specialty Start Date End Date Laurel Parks MD [address] [place] [address] [place] [address] PCP - General Internal Medicine 09/21/24
== END 2025-07-19 09:11 | disposition home or self-care (01) ==
LOC: CHSIMG 09:13
PROVIDERS: PCP Internal Medicine; Visit Provider Nurse Practitioner
DX: R92.8 Other abnormal and inconclusive findings on diagnostic imaging of breast (principal)
CPT/HCPCS: 77061; 77065; G0279